=== PATIENT | female | born 1970 | race Caucasian/White ===

== ENCOUNTER → 2019-01-18 07:51 | Outpatient (CLI) | payer BC, OTHER, SELFPAY ==
[2019-01-18 08:53] LABS: Alanine Aminotransferase 22 IU/L (9-52); Albumin 4.2 g/dL (3.5-5.0); Albumin Globulin Ratio 1.4 (1.0-2.8); Alkaline Phosphatase 50 U/L (38-126); Aspartate Aminotransferase 21 IU/L (14-36); BUN Creatinine Ratio 18.3 (6-22); Bilirubin Total 0.3 mg/dL (0.2-1.3); Blood Urea Nitrogen 11 mg/dL (7-17); Calcium 9.2 mg/dL (8.4-10.2); Carbon Dioxide 27 mmol/L (22-32); Chloride 104 mmol/L (98-107); Cholesterol 237 mg/dL (140-199); Estimated Glomerular Filt Rate > 60.0 mL/min (>60); Glucose 99 mg/dL (70-100); HDL Cholesterol 55 mg/dL (40-60); HEMOLYSIS < 15 (0-50); LDL Cholesterol Calculated 164 mg/dL (<100); Potassium 4.5 mmol/L (3.4-5.1); Sodium 138 mmol/L (137-145); Total Protein 7.2 g/dL (6.3-8.2); Triglycerides 89 mg/dL (35-150)
[2019-01-18 09:23] LABS: TSH w/ Reflex to FT4 1.84 uIU/mL (0.47-4.68)
== END ==
PROVIDERS: PCP Internal Medicine; Visit Provider Internal Medicine
DX: G43.709 Chronic migraine without aura, not intractable, without status migrainosus (principal); I10 Essential (primary) hypertension
CPT/HCPCS: 36415; 80053; 80061; 84443

== ENCOUNTER → 2020-05-30 09:57 | Outpatient (CLI) | payer BC, OTHER, SELFPAY ==
[2020-05-30 10:48] LABS: Add Manual Diff / Slide Review NO; Basophils Absolute Auto 100 /uL (0-100); Basophils Percent Auto 1.2 % (0-2); Eosinophils Absolute Auto 100 /uL (0-450); Eosinophils Percent Auto 2.8 % (2-4); Hematocrit 39.5 % (36-46); Hemoglobin 13.6 g/dL (12.0-16.0); Lymphocytes Absolute Auto 1600 /uL (1100-4500); Lymphocytes Percent Auto 30.2 % (25-40); Mean Corpuscular HGB Conc 34.5 % (30-36); Mean Corpuscular Volume 86.9 fL (80-100); Monocytes Absolute Auto 300 /uL (0-900); Monocytes Percent Auto 4.9 % (3-14); Neutrophils Absolute Auto 3200 /uL (1500-7000); Neutrophils Percent Auto 60.9 % (50-75); Platelet Count 292 X10^3/uL (150-400); Red Blood Cell Count 4.55 X10^6/uL (4.0-5.2); Red Cell Distribution Width 13.1 % (11.6-14.8); White Blood Cell Count 5.3 X10^3/uL (4.5-11.0)
[2020-05-30 11:01] LABS: Alanine Aminotransferase 20 IU/L (<35); Albumin 4.5 g/dL (3.5-5.0); Albumin Globulin Ratio 1.5 (1.0-2.8); Alkaline Phosphatase 50 U/L (38-126); Aspartate Aminotransferase 23 IU/L (14-36); BUN Creatinine Ratio 17.9 (6-22); Bilirubin Total 0.4 mg/dL (0.2-1.3); Blood Urea Nitrogen 10 mg/dL (7-17); Calcium 9.2 mg/dL (8.4-10.2); Carbon Dioxide 30 mmol/L (22-32); Chloride 105 mmol/L (98-107); Estimated Glomerular Filt Rate > 60.0 mL/min (>60); Glucose 94 mg/dL (70-100); HEMOLYSIS < 15 (0-50); Sodium 139 mmol/L (137-145); Total Protein 7.5 g/dL (6.3-8.2)
[2020-05-30 11:27] LABS: TSH w/ Reflex to FT4 1.55 uIU/mL (0.47-4.68)
== END ==
PROVIDERS: PCP Internal Medicine; Referring Provider Internal Medicine; Visit Provider Internal Medicine
DX: G43.709 Chronic migraine without aura, not intractable, without status migrainosus (principal); I10 Essential (primary) hypertension
CPT/HCPCS: 36415; 80053; 84443; 85025

== ENCOUNTER 2021-04-30 21:42 | Emergency (ER) | payer BC, OTHER, SELFPAY ==
[2021-04-30 21:50] VITALS: BP 193/92; PULSE 105; RESP 18; TEMP 36.7; O2SAT 98; BMI 30.7
[2021-04-30 22:00] VITALS: PULSE 96; O2SAT 100
[2021-04-30 22:02] VITALS: BP 185/88; PULSE 95; O2SAT 100
--- NOTE | 2021-04-30 22:07 | DI.RAD.S_ITS ---
PROCEDURE: XR CHEST 1V INDICATIONS: chest pressure TECHNIQUE: One view of the chest was acquired. COMPARISON: [facility], , CHEST 2 VIEW, 08/06/2017, 15:16. FINDINGS: Surgical changes and devices: None. Lungs and pleura: Lungs are clear. No pleural effusions or pneumothorax. Mediastinum: Mediastinal contours appear normal. Heart size is normal. Bones and chest wall: No suspicious bony lesions. Overlying soft tissues appear unremarkable. IMPRESSION: No acute cardiopulmonary pathology. Dictated by: Berlin Lind M.D. on 04/30/2021 at 22:29 Approved by: Berlin Lind M.D. on 04/30/2021 at 22:29
[2021-04-30 22:18] LABS: Add Manual Diff / Slide Review NO; Basophils Absolute Auto 100 /uL (0-100); Basophils Percent Auto 0.7 % (0-2); Eosinophils Absolute Auto 200 /uL (0-450); Eosinophils Percent Auto 2.5 % (2-4); Hematocrit 40.3 % (36-46); Lymphocytes Absolute Auto 2600 /uL (1100-4500); Lymphocytes Percent Auto 36.1 % (25-40); Mean Corpuscular HGB Conc 34.7 % (30-36); Mean Corpuscular Hemoglobin 29.5 PG (26-34); Mean Corpuscular Volume 85.2 fL (80-100); Monocytes Absolute Auto 400 /uL (0-900); Monocytes Percent Auto 5.9 % (3-14); Neutrophils Absolute Auto 3900 /uL (1500-7000); Neutrophils Percent Auto 54.8 % (50-75); Platelet Count 332 X10^3/uL (150-400); Red Blood Cell Count 4.73 X10^6/uL (4.0-5.2); Red Cell Distribution Width 12.9 % (11.6-14.8); White Blood Cell Count 7.2 X10^3/uL (4.5-11.0)
[2021-04-30 22:19] LABS: Alanine Aminotransferase 15 IU/L (<35); Albumin 4.5 g/dL (3.5-5.0); Albumin Globulin Ratio 1.5 (1.0-2.8); Alkaline Phosphatase 56 U/L (38-126); Aspartate Aminotransferase 23 IU/L (14-36); BUN Creatinine Ratio 18.2 (6-22); Bilirubin Total 0.3 mg/dL (0.2-1.3); Blood Urea Nitrogen 12 mg/dL (7-17); Calcium 9.5 mg/dL (8.4-10.2); Carbon Dioxide 30 mmol/L (22-32); Chloride 104 mmol/L (98-107); Creatine Kinase 40 U/L (30-135); Estimated Glomerular Filt Rate > 60.0 mL/min (>60); Glucose 109 mg/dL (70-100); HEMOLYSIS < 15 (0-50); Lipase 89 U/L (23-300); Potassium 3.6 mmol/L (3.4-5.1); Sodium 140 mmol/L (137-145); Total Protein 7.5 g/dL (6.3-8.2)
[2021-04-30 22:30] VITALS: BP 168/79; PULSE 85; RESP 16; O2SAT 98
[2021-04-30 22:31] LABS: Troponin I < 0.012 ng/mL (0.01-0.034)
--- NOTE | 2021-04-30 22:39 | ED_ITS ---
HPI - General Adult General Chief complaint: Hypertension Stated complaint: not feeling well Time Seen by Provider: 04/30/21 22:07 Source: patient Mode of arrival: Ambulatory Limitations: no limitations History of Present Illness HPI narrative: This is a 51-year-old female who comes emergency department with complaint of not feeling well. Patient states she has a history of hypertension she also on verapamil which she states is her only blood pressure medication. She does not think she takes it for any other reason. Patient states that she has been checking her pressures intermittently for last several weeks and getting 150s, 170s frequently. She also notes that she sometimes feels like her heart is fast or racing. She will check it and it was 105 the other day at home. She has not had any syncope. She had time she feels little dizzy. She denies chest pain or pressure. She does not feel short of breath. She denies any nausea. She denies any diarrhea constipation. No urinary symptoms. No new swelling in her extremities. She does sometimes feel like her heart during palpitations is up in her throat. She denies any other medical issues. She does states she has been having some issues with insomnia and she also feels very anxious if she notes her blood pressure is high and will check it more frequently. She has a grandmother that from heart problems but denies any other significant cardiac, pulmonary or embolic history besides father with COPD who she states does use tobacco and alcohol frequently. Patient denies current tobacco, occasional EtOH, no illicit. Related Data Home Medications Medication Instructions Recorded Confirmed ascorbic acid (vitamin C) 500 mg #0 08/04/17 04/27/21 tablet coenzyme Q10 100 mg capsule (Co #0 08/04/17 04/27/21 Q-10) magnesium 200 mg tablet #0 08/04/17 04/27/21 vitamin B complex (B 1 tab PO DAILY 02/15/19 04/27/21 Complex-Vitamin B12) cholecalciferol (vitamin D3) 50 50 mcg PO .2-3x week cap 05/30/20 04/27/21 mcg (2,000 unit) capsule Previous Rx's Medication Instructions Recorded valacyclovir 1 gram tablet 1,000 mg PO TID #42 tab 06/08/11 cyclobenzaprine 10 mg tablet 10 mg PO TID PRN #60 tab 05/30/20 verapamil 120 mg tablet,extended 120 mg PO DAILY #30 tab 03/19/21 release amoxicillin 500 mg capsule 500 mg PO Q8H 7 Days #21 cap 04/27/21 verapamil 180 mg 24 hr 180 mg PO DAILY #20 cap 04/30/21 capsule,extended release Allergies Allergy/AdvReac Type Severity Reaction Status Date / Time Sulfa (Sulfonamide Allergy Intermediate Verified 04/27/21 08:17 Antibiotics) [SULFA (SULFONAMIDE ANTIBIOTICS)] sulfamethoxazole Allergy Unknown Verified 04/27/21 08:17 [From ] trimethoprim [From ] Allergy Unknown Verified 04/27/21 08:17 lisinopril AdvReac Intermediate felt weird Verified 04/27/21 08:17 propranolol AdvReac Intermediate felt wierd Verified 04/27/21 08:17 Review of Systems Review of Systems ROS Unobtainable: All systems reviewed & are unremarkable except as noted in HPI and below Patient History Medical History 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) Chronic migraine Hypertension Internal carotid artery dissection (09/13/10) Varicose veins of left lower extremity Surgical History Status post bilateral salpingectomy (01/21/14) Status post breast biopsy Status post delivery Status post cone biopsy of cervix (10/08/08) Status post cystoscopy (01/21/14) Status post total hysterectomy (01/21/14) Family History Father Diabetes mellitus Hypertension Grandfather Diabetes mellitus Grandmother [place] (myocardial infarction) Social History Smoking Status: Former smoker alcohol intake: never substance use type: does not use Smoking Status: Former smoker alcohol intake frequency: 0-2 drinks per day Substance Use Type: does not use Exam Narrative Exam Narrative: GENERAL: Alert and oriented x three, female in mild distress. HEENT: Head normocephalic, atraumatic, EOMI, pupils reactive, face symmetric, moist mucous membranes NECK: Supple, full range of motion CARDIOVASCULAR: Regular rate and rhythm without murmurs, rubs or gallops. No JVD. No swelling bilateral upper or lower extremities. RESPIRATORY: Breath sounds equal bilaterally, no wheezes rales or rhonchi. No tachypnea or accessory muscle use. ABDOMEN: Soft, nontender. Normoactive bowel sounds all 4 quadrants. No guarding or rebound, rigidity, no mass : No CVA tenderness EXTREMITIES: Normal range of motion, no edema. Neurovascularly intact NEUROLOGICAL: Cranial nerves II through XII grossly intact. Moving all extremities SKIN: Warm, dry, no petechiae, no rashes or lesions. PSYCH: Anxiety Initial Vital Signs Initial Vital Signs: Vital Signs Temperature 98.1 F 04/30/21 21:50 Pulse Rate 105 H 04/30/21 21:50 Respiratory Rate 18 04/30/21 21:50 Blood Pressure 193/92 H 04/30/21 21:50 Pulse Oximetry 98 04/30/21 21:50 Scores HEART Score Heart Score history: Slightly Suspicious Heart Score EKG: Normal Heart Score Age: 45-64 years old Heart Score risk factors: 1-2 risk factors Heart Score troponin: < or = to normal limit Heart Score Total: 2 PERC Score Age greater than or equal to 50 years: Yes Heart rate greater than or equal to 100 bpm: Yes Room Air O2 Sat less than 95%: No Unilateral leg swelling: No Recent trauma or surgery: No Hemoptysis: No Prior PE or DVT: No Hormone Use: No Total PERC Score: 2 Course Orders Ordered: ED Orders 04/30/21 21:51 EKG-12 Lead Stat 04/30/21 21:55 Complete Blood Count AUTO DIFF Stat Comprehensive Metabolic Panel Stat D Dimer Stat Lipase Stat Troponin & CK Cardiac Panel Stat 04/30/21 21:58 COVID19 -Nasal swab/Pre-Proc Stat 04/30/21 22:07 XR chest 1V Stat EKG-12 Lead Stat Vital Signs Vital signs: Vital Signs - 8 hr 04/30/21 21:50 04/30/21 22:00 04/30/21 22:02 Temperature 98.1 F Pulse Rate 105 H 96 H 95 H Respiratory Rate 18 Blood Pressure 193/92 H 185/88 H Pulse Oximetry 98 100 100 04/30/21 22:30 04/30/21 23:00 04/30/21 23:08 Temperature Pulse Rate 85 82 90 Respiratory Rate 16 Blood Pressure 168/79 H 182/79 H 156/82 H Pulse Oximetry 98 98 98 Medical Decision Making Lab Data Result diagrams: 04/30/21 21:55 04/30/21 21:55 Labs: Lab Results 04/30/21 04/30/21 04/30/21 Range/Units 21:55 21:55 21:55 WBC 7.2 (4.5-11.0) X10^3/uL RBC 4.73 (4.0-5.2) X10^6/uL Hgb 14.0 (12.0-16.0) g/dL Hct 40.3 (36-46) % MCV 85.2 (80-100) fL MCH 29.5 (26-34) PG MCHC 34.7 (30-36) % RDW 12.9 (11.6-14.8) % Plt Count 332 (150-400) X10^3/uL Neut % (Auto) 54.8 (50-75) % Lymph % (Auto) 36.1 (25-40) % Ritchie % (Auto) 5.9 (3-14) % Eos % (Auto) 2.5 (2-4) % Baso % (Auto) 0.7 (0-2) % Neut # (Auto) 3900 (0437-4788) /uL Lymph # (Auto) 2600 (5780-3880) /uL Ritchie # (Auto) 400 (0-900) /uL Eos # (Auto) 200 (0-450) /uL Baso # (Auto) 100 (0-100) /uL D-Dimer < 200 (<230) ng/mL Sodium 140 (137-145) mmol/L Potassium 3.6 (3.4-5.1) mmol/L Chloride 104 (98-107) mmol/L Carbon Dioxide 30 (22-32) mmol/L BUN 12 (7-17) mg/dL Creatinine 0.66 (0.52-1.04) mg/dL Estimated GFR > 60.0 (>60) mL/min BUN/Creatinine Ratio 18.2 (6-22) Glucose 109 H (70-100) mg/dL Calcium 9.5 (8.4-10.2) mg/dL Total Bilirubin 0.3 (0.2-1.3) mg/dL AST 23 (14-36) IU/L ALT 15 (<35) IU/L Alkaline Phosphatase 56 (38-126) U/L Total Creatine Kinase 40 (30-135) U/L CK-MB (CK-2) TNP CK-MB (CK-2) Rel Index TNP Troponin I < 0.012 (0.01-0.034) ng/mL Total Protein 7.5 (6.3-8.2) g/dL Albumin 4.5 (3.5-5.0) g/dL Globulin 3.0 (1.7-4.1) g/dL Albumin/Globulin Ratio 1.5 (1.0-2.8) Lipase 89 (23-300) U/L SARS-CoV-2 (PCR) (Negative) 04/30/21 Range/Units 21:58 WBC (4.5-11.0) X10^3/uL RBC (4.0-5.2) X10^6/uL Hgb (12.0-16.0) g/dL Hct (36-46) % MCV (80-100) fL MCH (26-34) PG MCHC (30-36) % RDW (11.6-14.8) % Plt Count (150-400) X10^3/uL Neut % (Auto) (50-75) % Lymph % (Auto) (25-40) % Ritchie % (Auto) (3-14) % Eos % (Auto) (2-4) % Baso % (Auto) (0-2) % Neut # (Auto) (7005-5829) /uL Lymph # (Auto) (4726-3459) /uL Ritchie # (Auto) (0-900) /uL Eos # (Auto) (0-450) /uL Baso # (Auto) (0-100) /uL D-Dimer (<230) ng/mL Sodium (137-145) mmol/L Potassium (3.4-5.1) mmol/L Chloride (98-107) mmol/L Carbon Dioxide (22-32) mmol/L BUN (7-17) mg/dL Creatinine (0.52-1.04) mg/dL Estimated GFR (>60) mL/min BUN/Creatinine Ratio (6-22) Glucose (70-100) mg/dL Calcium (8.4-10.2) mg/dL Total Bilirubin (0.2-1.3) mg/dL AST (14-36) IU/L ALT (<35) IU/L Alkaline Phosphatase (38-126) U/L Total Creatine Kinase (30-135) U/L CK-MB (CK-2) CK-MB (CK-2) Rel Index Troponin I (0.01-0.034) ng/mL Total Protein (6.3-8.2) g/dL Albumin (3.5-5.0) g/dL Globulin (1.7-4.1) g/dL Albumin/Globulin Ratio (1.0-2.8) Lipase (23-300) U/L SARS-CoV-2 (PCR) Negative (Negative) Imaging Data Chest x-ray: Radiologist's Impression: Launch?Image [address] [address] XRay Report Signed Patient: Virgie Basilio MR#: [id number] : 1970 Acct:[id number] Age/Sex: 51 / F Date of Service: 04/30/21 Loc: ED Accession Number: [id number] ?? Procedure: XR chest 1V Ordering Provider: Becka Kirk D.O. PROCEDURE:? XR CHEST 1V ? INDICATIONS:? chest pressure ? TECHNIQUE:? One view of the chest was acquired.? ? COMPARISON:? [facility], , CHEST 2 VIEW, 08/06/2017, 15:16. ? FINDINGS:? ? Surgical changes and devices:? None.? ? Lungs and pleura:? Lungs are clear.? No pleural effusions or pneumothorax.? ? Mediastinum:? Mediastinal contours appear normal.? Heart size is normal.? ? Bones and chest wall:? No suspicious bony lesions.? Overlying soft tissues ap pear unremarkable.? ? IMPRESSION:? No acute cardiopulmonary pathology. ? ? Dictated by: Berlin Lind M.D. on 04/30/2021 at 22:29 ? ? Approved by: Berlin Lind M.D. on 04/30/2021 at 22:29?? ECG Data Attestation: I personally reviewed and interpreted this ECG as follows: Prior ECG tracings: available for review Interpretation: Sinus rhythm possible left atrial enlargement. Nonspecific ST. Rate of 95 [place] 146 QRS 86 and QTC of 434. No acute ST elevation depression noted. Patient has prior from 07/28/2014 which appears similar. MDM Narrative Medical decision making narrative: This is a 51-year-old female comes emergency department with complaint of hypertension patient is hypertensive in the department. She has been checking at home regularly and also has been somewhat hypertensive. She is on verapamil which she states is solely for hypertension. She is not familiar with him being for any other medical issues. Patient does have reported history of chronic migraines but no other medical history a ppreciated in her chart. Of patient I discussed possibly increasing her verapamil slightly she has follow-up scheduled on the 11 of May. She also notes frequent palpitations but no other alarming features on her HPI. She was mildly tachycardic at 105 but is been 80s to 90s regularly and does not have other high risk factors with a negative D-dimer. My suspicion for PE is low. Her chest x-ray is negative with no signs of infection or other changes. Discussed following with her primary care they can perform Holter monitor if needed. Discharge Plan Departure Patient Disposition: Home Clinical Impression: Hypertension, Palpitations Instructions: DI for High Blood Pressure Activity Restrictions/Additional Instructions: Follow-up with your physician for recheck. If you are having persistently elevated blood pressures in the 150s or above it would be appropriate to slightly increase your blood pressure medication. Included as a prescription. Stop your current verapamil 120mg and start they new verapamil 180mg daily Prescription sent to [facility] in [place]. I would recommend keeping a log of your blood pressures. If they continue to be elevated you can call to speak to the on-call physician and Dr. Johnson office and then can give guidance about medication adjustment. If you continue to have palpitations or sense of faster fluttering heartbeat can discussed with Dr. Johnson at your appointment about possibly having a Holter monitor. Please return for new or worsening chest pain shortness of breath, passing out, new swelling in your extremities, persistent vomiting or other new or concerning symptoms. Prescriptions: New verapamil 180 mg capsule,ext rel. pellets 24 hr 180 mg PO DAILY Qty: 20 RF: 0 No Action amoxicillin 500 mg capsule 500 mg PO Q8H 7 Days Qty: 21 RF: 0 ascorbic acid (vitamin C) 500 mg Tablet Qty: 0 RF: 0 magnesium 200 mg Tablet Qty: 0 RF: 0 coenzyme Q10 [Co Q-10] 100 mg Capsule Qty: 0 RF: 0 valacyclovir 1 gram tablet 1,000 mg PO TID Qty: 42 RF: 1 verapamil 120 mg tablet extended release 120 mg PO DAILY Qty: 30 RF: 3 vitamin B complex [B Complex-Vitamin B12] tablet 1 tab PO DAILY RF: 0 cholecalciferol (vitamin D3) 50 mcg (2,000 unit) capsule 50 mcg PO .2-3x week RF: 0 cyclobenzaprine 10 mg tablet 10 mg PO TID PRN (Reason: muscle spasm) Qty: 60 RF: 1 Referrals: Zach Johnson MD [Primary Care Provider] -
[2021-04-30 22:54] LABS: D Dimer < 200 ng/mL (<230)
[2021-04-30 22:59] LABS: COVID19 -Nasal RAPID Negative (Negative)
[2021-04-30 23:00] VITALS: BP 182/79; PULSE 82; O2SAT 98
[2021-04-30 23:08] VITALS: BP 156/82; PULSE 90; O2SAT 98
== END 2021-04-30 23:37 | disposition home or self-care (01) ==
PROVIDERS: Emergency Provider Emergency Medicine; PCP Internal Medicine
DX: I10 Essential (primary) hypertension (principal); R00.2 Palpitations; R07.9 Chest pain, unspecified; R42 Dizziness and giddiness; Z20.822 Contact with and (suspected) exposure to COVID-19
CPT/HCPCS: 36415; 71045; 80053; 82550; 83690; 84484; 85025; 85379; 87635; 93005; 93010; 99283; 99284; C9803

== ENCOUNTER → 2021-06-03 09:36 | Outpatient (CLI) | payer BC, OTHER, SELFPAY ==
--- NOTE | 2021-07-11 12:10 | P.HOLT.S_ITS ---
Insecticide Expert Report Referral & Results Date Patient Seen: 06/03/21 Requesting provider: Zach Johnson Indication: Palpitations Duration of monitoring (days): 8 Diary information: There were 4 patient triggered events associated with sinus rhythm only Data: Minimum heart rate identified was 59 beats per minute at 04:32 on 06/04/2021 Maximum heart rate was 133 beats per minute at 08:45 on 06/05/2021 Less than 1% of identified beats were ventricular or supraventricular ectopic in origin, which would classify them as rare. Impression: This study demonstrates rare simple PVCs and PACs. Patient events not associated with any dysrhythmia Essentially normal 7+ day quality assurance monitor body that does not demonstrate an etiology for patient's sense of palpitations Clinical correlation suggested
== END ==
PROVIDERS: PCP Internal Medicine; Referring Provider Internal Medicine; Visit Provider Internal Medicine
DX: R00.2 Palpitations (principal)
CPT/HCPCS: 93242; 93244

== ENCOUNTER → 2021-09-30 12:41 | Outpatient (CLI) | payer BC, OTHER, SELFPAY ==
--- NOTE | 2021-09-30 12:43 | DI.MG.S_ITS ---
BILATERAL DIGITAL DIAGNOSTIC MAMMOGRAM 3D/2D: 09/30/2021 CLINICAL: Left breast pain. Comparison is made to exam dated: 12/16/2015 mammogram - [facility]. There are scattered fibroglandular elements in both breasts. No significant masses, calcifications, or other findings are seen in either breast. There has been no significant interval change. IMPRESSION: NEGATIVE There is no mammographic evidence of malignancy. A 1 year screening mammogram is recommended. This exam was interpreted at Station ID: [id number]. NOTE: For mammograms, a report in lay terms will be sent to the patient. Approximately 15% of breast malignancies will not be visualized mammographically. In the management of a palpable breast mass, a negative mammogram must not discourage biopsy of a clinically suspicious lesion. Electronically Signed By: Yoseph Nettles M.D., jr/austen:09/30/2021 14:00:25 letter sent: Normal Exam ACR BI-RADS Category 1: Negative [id number]
== END ==
PROVIDERS: PCP Internal Medicine; Referring Provider Internal Medicine; Visit Provider Internal Medicine
DX: N64.4 Mastodynia (principal)
CPT/HCPCS: 77066; G0279

== ENCOUNTER → 2022-04-05 09:32 | Outpatient (CLI) | payer BC, OTHER, SELFPAY ==
[2022-04-05 14:17] LABS: Alanine Aminotransferase 17 IU/L (<35); Albumin Globulin Ratio 1.5 (1.0-2.8); Alkaline Phosphatase 61 U/L (38-126); Aspartate Aminotransferase 18 IU/L (14-36); BUN Creatinine Ratio 18.6 (6-22); Bilirubin Total 0.3 mg/dL (0.2-1.3); Blood Urea Nitrogen 11 mg/dL (7-17); Calcium 8.5 mg/dL (8.4-10.2); Carbon Dioxide 27 mmol/L (22-32); Chloride 104 mmol/L (98-107); Cholesterol 272 mg/dL (140-199); Estimated Glomerular Filt Rate > 60 mL/min (>60); Globulin 2.6 g/dL (1.7-4.1); Glucose 78 mg/dL (70-100); HDL Cholesterol 54 mg/dL (40-60); HEMOLYSIS < 15 (0-50); LDL Cholesterol Calculated 198 mg/dL (<100); Potassium 4.2 mmol/L (3.4-5.1); Sodium 138 mmol/L (137-145); Total Protein 6.6 g/dL (6.3-8.2); Triglycerides 99 mg/dL (35-150)
[2022-04-05 14:27] LABS: Free T4, Direct Thyroxine 0.99 ng/dL (0.78-2.19)
== END ==
PROVIDERS: PCP Internal Medicine; Referring Provider Internal Medicine; Visit Provider Internal Medicine
DX: E78.5 Hyperlipidemia, unspecified (principal); G43.709 Chronic migraine without aura, not intractable, without status migrainosus; I10 Essential (primary) hypertension
CPT/HCPCS: 36415; 80053; 80061; 84439; 84443

== ENCOUNTER 2022-06-15 19:02 | Emergency (ER) | payer BC, OTHER, SELFPAY ==
[2022-06-15 19:20] VITALS: BP 169/96; PULSE 94; RESP 20; TEMP 36.8; O2SAT 99; BMI 30.5
--- NOTE | 2022-06-15 19:45 | DI.CT.S_ITS ---
PROCEDURE: CT CERVICAL SPINE WO CON INDICATIONS: fall with injury TECHNIQUE: Noncontrast 3 mm thick sections acquired from the skull base to the T4 level. Sagittal and coronal reformats were then constructed. For radiation dose reduction, the following was used: automated exposure control, adjustment of mA and/or kV according to patient size. COMPARISON: None. FINDINGS: Image quality: Excellent. Bones: No fractures or subluxation. There is straightening of the cervical lordosis. There is mild degenerative disc disease at C5-C6. Visualized superior ribs are intact. Soft tissues: Prevertebral soft tissues are normal in thickness. No paravertebral hematomas. No apical pneumothoraces. IMPRESSION: 1. No fracture or subluxation. Dictated by: Sagar Fierro M.D. on 06/15/2022 at 20:19 Approved by: Sagar Fierro M.D. on 06/15/2022 at 20:21
--- NOTE | 2022-06-15 19:45 | DI.CT.S_ITS ---
PROCEDURE: CT HEAD/BRAIN WO CON INDICATIONS: fall with injury TECHNIQUE: Noncontrast 4.5 mm thick angled axial sections acquired from the foramen magnum to the vertex, with coronal and sagittal reformats. For radiation dose reduction, the following was used: automated exposure control, adjustment of mA and/or kV according to patient size. COMPARISON: [facility], CT, HEAD WITHOUT CONTRAST, 08/04/2017, 15:35. FINDINGS: Image quality: Excellent. CSF spaces: Basal cisterns are patent. No extra-axial fluid collections. Ventricles are normal in size and shape. Brain: No intracranial hemorrhage, mass, or mass effect. Carrillo-white matter interface appears preserved. Skull and face: Calvarium and visualized facial bones are intact, without suspicious lesions. Sinuses: Visualized sinuses demonstrate mucosal thickening with small air-fluid levels within the left maxillary and bilateral sphenoid sinuses suggestive of acute sinusitis. Mastoid air cells are clear. IMPRESSION: 1. Or No acute intracranial abnormality. Dictated by: Sagar Fierro M.D. on 06/15/2022 at 20:17 Approved by: Sagar Fierro M.D. on 06/15/2022 at 20:19
--- NOTE | 2022-06-15 19:48 | DI.RAD.S_ITS ---
PROCEDURE: XR SHOULDER LT MIN 2V INDICATIONS: fall with injury TECHNIQUE: 3 views of the shoulder were acquired. COMPARISON: None. FINDINGS: Bones: No fractures or dislocations. No suspicious bony lesions. Visualized ribs appear intact. Soft tissues: No suspicious soft tissue calcifications. IMPRESSION: 1. No fracture or dislocation. Dictated by: Sagar Fierro M.D. on 06/15/2022 at 20:21 Approved by: Sagar Fierro M.D. on 06/15/2022 at 20:21
--- NOTE | 2022-06-15 19:48 | DI.RAD.S_ITS ---
PROCEDURE: XR HIP W PEL IF DONE RT 2V INDICATIONS: fall with injury TECHNIQUE: AP pelvis with lateral view of the right hip. COMPARISON: None. FINDINGS: Bones: No fractures or dislocations. Pelvic ring appears intact. No suspicious bony lesions. Soft tissues: The visualized bowel gas pattern is normal. No suspicious soft tissue calcifications. IMPRESSION: 1. No fracture or dislocation. Dictated by: Sagar Fierro M.D. on 06/15/2022 at 20:22 Approved by: Sagar Fierro M.D. on 06/15/2022 at 20:22
--- NOTE | 2022-06-15 21:10 | ED_ITS ---
HPI - General Adult General Chief complaint: Trauma Stated complaint: fell, hit head hard Time Seen by Provider: 06/15/22 20:06 Source: patient Mode of arrival: Ambulatory History of Present Illness HPI narrative: 52-year-old female who is here for evaluation of injuries she sustained when she states she slipped on the ice and fell backwards landing on her back. She states she did hit her head. There was no loss of consciousness. This happened several hours ago. She has taken Tylenol. She is continued to have a headache. She also has hip pain and shoulder pain. She has been ambulatory since the event. Is also having some dizziness. She is not on blood thinners. Related Data Home Medications Medication Instructions Recorded Confirmed ascorbic acid (vitamin C) 500 mg ##0 08/04/17 04/26/22 tablet coenzyme Q10 100 mg capsule (Co ##0 08/04/17 04/26/22 Q-10) magnesium 200 mg tablet ##0 08/04/17 04/26/22 vitamin B complex (B 1 tab PO DAILY 02/15/19 04/26/22 Complex-Vitamin B12 tablet) cholecalciferol (vitamin D3) 50 50 mcg PO .2-3x week 05/30/20 04/26/22 mcg (2,000 unit) capsule Previous Rx's Medication Instructions Recorded valacyclovir 1 gram tablet 1,000 mg PO TID #42 tabs 06/08/11 cyclobenzaprine 10 mg tablet 10 mg PO TID PRN muscle spasm #60 05/30/20 tabs tramadol 50 mg tablet 50 mg PO TID PRN pain #30 tabs 10/20/21 carvedilol 3.125 mg tablet 3.125 mg PO BID #60 tabs 02/26/22 verapamil 120 mg tablet,extended 120 mg PO BID #180 tabs 03/02/22 release Allergies Allergy/AdvReac Type Severity Reaction Status Date / Time Sulfa (Sulfonamide Allergy Intermediate Verified 04/26/22 09:28 Antibiotics) [SULFA (SULFONAMIDE ANTIBIOTICS)] sulfamethoxazole Allergy Unknown Verified 04/26/22 09:28 [From ] trimethoprim [From ] Allergy Unknown Verified 04/26/22 09:28 lisinopril AdvReac Intermediate felt weird Verified 04/26/22 09:28 propranolol AdvReac Intermediate felt wierd Verified 04/26/22 09:28 Review of Systems Constitutional Constitutional: Reports system reviewed and no additional complaints, except as documented ENT Ears, Nose, Mouth, and Throat: Reports system reviewed and no additional complaints, except as documented Musculoskeletal Musculoskeletal: Reports system reviewed and no additional complaints, except as documented Integumentary/Breasts Skin/Breast: Reports system reviewed and no additional complaints, except as documented Neurologic Neurologic: Reports system reviewed and no additional complaints, except as documented Hematologic/Lymphatic On Anticoagulants: No Patient History Medical History 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) Chronic migraine Hypertension Internal carotid artery dissection (09/13/10) Mixed hyperlipidemia Varicose veins of left lower extremity Surgical History Status post bilateral salpingectomy (01/21/14) Status post breast biopsy Status post delivery Status post cone biopsy of cervix (10/08/08) Status post cystoscopy (01/21/14) Status post total hysterectomy (01/21/14) Family History Father Diabetes mellitus Hypertension Grandfather Diabetes mellitus Grandmother [place] (myocardial infarction) Social History Smoking Status: Former smoker alcohol intake: never substance use type: does not use Smoking Status: Former smoker alcohol intake frequency: 0-2 drinks per day Substance Use Type: does not use Exam Initial Vital Signs Initial Vital Signs: Vital Signs Temperature 98.3 F 06/15/22 19:20 Pulse Rate 94 H 06/15/22 19:20 Respiratory Rate 20 06/15/22 19:20 Blood Pressure 169/96 H 06/15/22 19:20 Pulse Oximetry 99 06/15/22 19:20 Oxygen Delivery Method 06/15/22 19:20 Const General: cooperative and No ill appearing HENMT Head: normal to inspection and normocephalic Face and sinus: normal facial exam Resp Effort & Inspection: normal respiratory effort Cardio Rate: regular rate Back/Spine/Pelvis Back: normal to inspection Skin General: no rashes or lesions noted Neuro General: patient alert, patient awake and moves all extremities Extrem General: capillary refill normal Psych Appearance: grossly normal and well kempt Course Orders Ordered: ED Orders 06/15/22 19:45 CT cervical spine wo con Stat CT head/brain wo con Stat 06/15/22 19:48 XR hip w pel if done RT 2V Stat XR shoulder LT min 2V Stat Discontinued Medications Acetaminophen (Acetaminophen 325 Mg Tablet) 650 mg PO NOW ONE Stop: 06/15/22 21:12 Last Admin: 06/15/22 21:35 Dose: 650 mg Documented By: ADA Vital Signs Vital signs: Vital Signs - 8 hr 06/15/22 19:20 06/15/22 21:37 Temperature 98.3 F 97.7 F Pulse Rate 94 H 66 Respiratory Rate 20 16 Blood Pressure 169/96 H 122/74 Pulse Oximetry 99 98 Oxygen Delivery Method Room Air Room Air Medical Decision Making Imaging Data CT - cervical spine: Radiologist's Impression: [address] [address] [address] Scan Report Signed Patient: Virgie Basilio MR#: [id number] : 1970 Acct:[id number] Age/Sex: 52 / F Date of Service: 06/15/22 Loc: ED Accession Number: [id number] ?? Procedure: CT cervical spine wo con Ordering Provider: Manuel Torre D.O. PROCEDURE:? CT CERVICAL SPINE WO CON ? INDICATIONS:? fall with injury ? TECHNIQUE:? Noncontrast 3 mm thick sections acquired from the skull base to the T4 level.? Sagittal and coronal reformats were then constructed.? For radiation dose reduction, the following was used:? automated exposure control, adjustment of mA and/or kV according to patient size.? ? COMPARISON:? None. ? FINDINGS:? Image quality:? Excellent.? ? Bones:? No fractures or subluxation.? There is straightening of the cervical lordosis.? There is mild degenerative disc disease at C5-C6.? Visualized superior ribs are intact.? ? Soft tissues:? Prevertebral soft tissues are normal in thickness.? No paravertebral hematomas.? No apical pneumothoraces.? ? ? IMPRESSION:? ? 1. No fracture or subluxation. ? ? ? Dictated by: Sagar Fierro M.D. on 06/15/2022 at 20:19 ? ? Approved by: Sagar Fierro M.D. on 06/15/2022 at 20:21? CT scan - head: Radiologist's Impression: [place] [address] CT Scan Report Signed Patient: Virgie Basilio MR#: [id number] : 1970 Acct:[id number] Age/Sex: 52 / F Date of Service: 06/15/22 Loc: ED Accession Number: [id number] ?? Procedure: CT head/brain wo con Ordering Provider: Manuel Torre D.O. PROCEDURE:? CT HEAD/BRAIN WO CON ? INDICATIONS:? fall with injury ? TECHNIQUE:? Noncontrast 4.5 mm thick angled axial sections acquired from the foramen magnum to the vertex, with coronal and sagittal reformats.? For radiation dose reduction, the following was used:? automated exposure control, adjustment of mA and/or kV according to patient size.? ? COMPARISON:? [facility], CT, HEAD WITHOUT CONTRAST, 08/04/2017, 15:35. ? FINDINGS:? Image quality:? Excellent.? ? CSF spaces:? Basal cisterns are patent.? No extra-axial fluid collections.? Ventricles are normal in size and shape.? ? Brain:? No intracranial hemorrhage, mass, or mass effect.? Carrillo-white matter interface appears preserved.? ? Skull and face:? Calvarium and visualized facial bones are intact, without suspicious lesions.? ? Sinuses:? Visualized sinuses demonstrate mucosal thickening with small air-fluid levels within the left maxillary and bilateral sphenoid sinuses suggestive of acute sinusitis.? Mastoid air cells are clear. ? IMPRESSION:? ? 1. Or No acute intracranial abnormality.? ? Dictated by: Sagar Fierro M.D. on 06/15/2022 at 20:17 ? ? Approved by: Sagar Fierro M.D. on 06/15/2022 at 20:19 Extremity x-ray #1: Radiologist's Impression: [address] [address] XRay Report Signed Patient: Virgie Basilio MR#: [id number] : 1970 Acct:[id number] Age/Sex: 52 / F Date of Service: 06/15/22 Loc: ED Accession Number: [id number] ?? Procedure: XR hip w pel if done RT 2V Ordering Provider: Manuel Torre D.O. PROCEDURE:? XR HIP W PEL IF DONE RT 2V ? INDICATIONS:? fall with injury ? TECHNIQUE:? AP pelvis with lateral view of the right hip. ? COMPARISON:? None. ? FINDINGS:? ? Bones:? No fractures or dislocations.? Pelvic ring appears intact.? No suspicious bony lesions.? ? Soft tissues:? The visualized bowel gas pattern is normal.? No suspicious soft tissue calcifications.? ? ? IMPRESSION:? ? 1. No fracture or dislocation. ? ? ? Dictated by: Sagar Fierro M.D. on 06/15/2022 at 20:22 ? ? Approved by: Sagar Fierro M.D. on 06/15/2022 at 20:22 Extremity x-ray #2: Radiologist's Impression: [place] [address] XRay Report Signed Patient: Virgie Basilio MR#: [id number] : 1970 Acct:[id number] Age/Sex: 52 / F Date of Service: 06/15/22 Loc: ED Accession Number: [id number] ?? Procedure: XR shoulder LT min 2V Ordering Provider: Manuel Torre D.O. PROCEDURE:? XR SHOULDER LT MIN 2V ? INDICATIONS:? fall with injury ? TECHNIQUE:? 3 views of the shoulder were acquired.? ? COMPARISON:? None. ? FINDINGS:? ? Bones:? No fractures or dislocations.? No suspicious bony lesions.? Visualized ribs appear intact.? ? Soft tissues:? No suspicious soft tissue calcifications.? ? IMPRESSION:? ? 1. No fracture or dislocation. ? ? Dictated by: Sagar Fierro M.D. on 06/15/2022 at 20:21 ? ? Approved by: Sagar Fierro M.D. on 06/15/2022 at 20:21 MDM Narrative Medical decision making narrative: X-rays and CT scans here in the emergency department show no acute pathology. We did discuss head injuries and concussions. Discussed use of Tylenol and ibuprofen. This was clearly a mechanical fall when she slipped on ice. We do discuss return precautions and follow-up instructions. She expressed understanding and agreement. Discharge Plan Departure Patient Disposition: Home Clinical Impression: Concussion Instructions: Concussion Activity Restrictions/Additional Instructions: You can wear the cervical collar for your comfort. Recommend that you continue to take Tylenol and or ibuprofen for any headaches or body aches. Contact your primary doctor for follow-up. You can eat like normal and sleep like normal. Return to the emergency department for any new symptoms. Prescriptions: No Action ascorbic acid (vitamin C) 500 mg Tablet Qty: 0 magnesium 200 mg Tablet Qty: 0 coenzyme Q10 [Co Q-10] 100 mg Capsule Qty: 0 valacyclovir 1 gram tablet 1,000 mg PO TID Qty: 42 1RF tramadol 50 mg tablet 50 mg PO TID PRN (Reason: pain) Qty: 30 0RF verapamil 120 mg tablet extended release 120 mg PO BID Qty: 180 3RF vitamin B complex [B Complex-Vitamin B12] tablet 1 tab PO DAILY carvedilol 3.125 mg tablet 3.125 mg PO BID Qty: 60 3RF Rx Instructions: must administer with a meal/food cholecalciferol (vitamin D3) 50 mcg (2,000 unit) capsule 50 mcg PO .2-3x week cyclobenzaprine 10 mg tablet 10 mg PO TID PRN (Reason: muscle spasm) Qty: 60 1RF Referrals: Zach Johnson MD [Primary Care Provider] - Visit Report Forms: Patient Portal/API
[2022-06-15] MEDS: ACETAMINOPHEN 325 MG TABLET 650 MG PO (21:35)
[2022-06-15 21:37] VITALS: BP 122/74; PULSE 66; RESP 16; TEMP 36.5; O2SAT 98
== END 2022-06-15 21:38 | disposition home or self-care (01) ==
PROVIDERS: Emergency Provider Emergency Medicine; PCP Internal Medicine
DX: S06.0X0A Concussion without loss of consciousness, initial encounter (principal); M25.511 Pain in right shoulder; M25.552 Pain in left hip; W00.0XXA Fall on same level due to ice and snow, initial encounter
CPT/HCPCS: 70450; 72125; 73030; 73502; 99283

== ENCOUNTER → 2023-09-05 06:38 | Outpatient (CLI) | payer BC, OTHER, SELFPAY ==
--- NOTE | 2023-09-05 06:39 | DI.US.S_ITS ---
PROCEDURE: US PERIPH VENOUS LOW EXTREM LT INDICATIONS: EDEMA AND MID/MED LEFT THIGH PALPABLE -?DEEP VEIN THROMBOSIS TECHNIQUE: Real-time imaging, as well as color and pulse Doppler interrogation, were performed of the lower extremity deep veins from the inguinal ligament to the popliteal fossa, with documentation of the visualized calf veins. COMPARISON: None. FINDINGS: The common femoral, femoral, popliteal, and the visualized calf veins are normally compressible, and free of intraluminal thrombus. Color and pulse Doppler demonstrate normal phasic intraluminal flow. There is normal augmentation response to distal compression maneuver. No abnormality identified at the palpable site at the left mid medial thigh. IMPRESSION: No findings of lower extremity deep venous thrombosis. No abnormality identified at the palpable abnormality at the medial thigh. Dictated by: Jerome Carmen M.D. on 09/05/2023 at 8:29 Approved by: Jerome Carmen M.D. on 09/05/2023 at 8:31
== END ==
PROVIDERS: PCP Internal Medicine; Referring Provider Internal Medicine; Visit Provider Internal Medicine
DX: R60.0 Localized edema (principal); O87.4 Varicose veins of lower extremity in the puerperium
CPT/HCPCS: 93971

== ENCOUNTER → 2024-07-24 07:31 | Outpatient (CLI) | payer OTHER, SELFPAY ==
[2024-07-24 08:09] LABS: Alanine Aminotransferase 27 IU/L (<35); Albumin 4.6 g/dL (3.5-5.0); Albumin Globulin Ratio 1.9 (1.0-2.8); Alkaline Phosphatase 49 U/L (38-126); Aspartate Aminotransferase 24 IU/L (14-36); BUN Creatinine Ratio 20.3 (6-22); Bilirubin Total 0.4 mg/dL (0.2-1.3); Blood Urea Nitrogen 13 mg/dL (7-17); Calcium 9.4 mg/dL (8.4-10.2); Carbon Dioxide 29 mmol/L (22-32); Chloride 105 mmol/L (98-107); Cholesterol 321 mg/dL (140-199); Estimated Glomerular Filt Rate > 60 mL/min (>60); Globulin 2.4 g/dL (1.7-4.1); Glucose 100 mg/dL (70-100); HDL Cholesterol 61 mg/dL (40-60); HEMOLYSIS < 15 (0-50); LDL Cholesterol Calculated 223 mg/dL (<100); Potassium 4.9 mmol/L (3.4-5.1); Sodium 139 mmol/L (137-145); Triglycerides 184 mg/dL (35-150)
[2024-07-24 08:39] LABS: TSH w/ Reflex to FT4 1.94 uIU/mL (0.47-4.68)
== END ==
PROVIDERS: PCP Internal Medicine; Referring Provider Internal Medicine; Visit Provider Internal Medicine
DX: E78.2 Mixed hyperlipidemia (principal); I10 Essential (primary) hypertension
CPT/HCPCS: 36415; 80053; 80061; 84443

== ENCOUNTER → 2024-08-17 07:32 | Outpatient (CLI) | payer OTHER, SELFPAY ==
--- NOTE | 2024-08-17 07:33 | DI.US.S_ITS ---
PROCEDURE: US ABDOMEN LIMITED INDICATIONS: RUQ PAIN TECHNIQUE: Real-time scanning was performed of the abdominal and retroperitoneal organs, with image documentation. COMPARISON: None. FINDINGS: Liver: Liver is normal in size and increased in echogenicity. Gallbladder: No gallstones. No wall thickening. No pericholecystic edema. Negative sonographic Cedeño's sign. Biliary ducts: Intrahepatic bile ducts are non-dilated. Extrahepatic bile duct caliber measures 3.8 mm. Normal is 6-7 mm or less in diameter, or 10 mm or less post-cholecystectomy. Pancreas: Visualized portions of the pancreas are sonographically normal. Miscellaneous: No free abdominal fluid. IMPRESSION: Liver is increased in echogenicity, most consistent with hepatic steatosis. Gallbladder is normal in appearance. No gallstones or gallbladder wall thickening. Dictated by: Silverio Mcfadden M.D. on 08/17/2024 at 11:55 Approved by: Silverio Mcfadden M.D. on 08/17/2024 at 11:56
== END ==
LOC: US 07:32
PROVIDERS: PCP Internal Medicine; Referring Provider Internal Medicine; Visit Provider Internal Medicine
DX: R10.11 Right upper quadrant pain (principal)
CPT/HCPCS: 76705

== ENCOUNTER 2024-08-31 18:11 | Emergency (ER) | payer OTHER, SELFPAY ==
[2024-08-31] VITALS (18 sets, daily range): BP systolic 163–209; BP diastolic 77–113; PULSE 75–96; RESP 9–23; TEMP 36.8; O2SAT 96–100; BMI 32.5
--- NOTE | 2024-08-31 18:17 | DI.RAD.S_ITS ---
PROCEDURE: XR CHEST 1V INDICATIONS: chest pain TECHNIQUE: One view of the chest was acquired. COMPARISON: None. FINDINGS: Surgical changes and devices: None. Lungs and pleura: Lungs are clear. No pleural effusions or pneumothorax. Mediastinum: Mediastinal contours appear normal. Heart size is normal. Bones and chest wall: No suspicious bony lesions. Overlying soft tissues appear unremarkable. IMPRESSION: No acute cardiopulmonary abnormality is seen. Approved by: Holden Goldberg M.D. on 08/31/2024 at 19:10
--- NOTE | 2024-08-31 18:18 | EKG_ITS ---
[place] [id number] [address] [place] [address] Test Date: 2024-08-31 Pat Name: Virgie Basilio Department: Room: Gender: Female Casework Manager: BELKIS : 1970 Requested By: Order Number: [id number] Reading MD: Yuval Bobby Measurements Intervals [place] Rate: 92 P: 61 [place]: 158 QRS: 48 QRSD: 88 T: 70 QT: 364 QTc: 450 Interpretive Statements Normal sinus rhythm with sinus arrhythmia Possible Left atrial enlargement Nonspecific ST and T wave abnormality Electronically Signed On 09-03-2024 8:38:18 PDT by Yuval Bobby
[2024-08-31] MEDS: ASPIRIN 81 MG CHEW TAB 324 MG PO (18:36)
[2024-08-31 18:39] LABS: Add Manual Diff / Slide Review NO; Basophils Absolute Auto 100 /uL (0-100); Eosinophils Absolute Auto 100 /uL (0-450); Eosinophils Percent Auto 1.9 % (2-4); Hematocrit 41.5 % (36-46); Hemoglobin 14.2 g/dL (12.0-16.0); Lymphocytes Absolute Auto 2500 /uL (1100-4500); Lymphocytes Percent Auto 37.1 % (25-40); Mean Corpuscular HGB Conc 34.3 % (30-36); Mean Corpuscular Hemoglobin 29.1 PG (26-34); Mean Corpuscular Volume 84.8 fL (80-100); Monocytes Absolute Auto 400 /uL (0-900); Monocytes Percent Auto 5.8 % (3-14); Neutrophils Absolute Auto 3700 /uL (1500-7000); Neutrophils Percent Auto 54.2 % (50-75); Platelet Count 318 X10^3/uL (150-400); Red Blood Cell Count 4.89 X10^6/uL (4.0-5.2); Red Cell Distribution Width 13.3 % (11.6-14.8); White Blood Cell Count 6.8 X10^3/uL (4.5-11.0)
[2024-08-31 18:51] LABS: INR 0.9 (0.9-1.3); Prothrombin Time 10.5 SECONDS (9.4-12.5)
[2024-08-31 18:53] LABS: PTT Partial Thromboplastin Tim 39 SECONDS (25.1-36.5)
[2024-08-31 18:56] LABS: Alanine Aminotransferase 21 IU/L (<35); Albumin 4.8 g/dL (3.5-5.0); Albumin Globulin Ratio 1.7 (1.0-2.8); Alkaline Phosphatase 64 U/L (38-126); Aspartate Aminotransferase 30 IU/L (14-36); BUN Creatinine Ratio 20.6 (6-22); Bilirubin Total 0.4 mg/dL (0.2-1.3); Blood Urea Nitrogen 14 mg/dL (7-17); Calcium 9.3 mg/dL (8.4-10.2); Carbon Dioxide 24 mmol/L (22-32); Chloride 105 mmol/L (98-107); Creatine Kinase 60 U/L (30-135); Estimated Glomerular Filt Rate > 60 mL/min (>60); Globulin 2.9 g/dL (1.7-4.1); Glucose 105 mg/dL (70-100); HEMOLYSIS 30 (0-50); Lipase 104 U/L (23-300); Potassium 3.6 mmol/L (3.4-5.1); Sodium 138 mmol/L (137-145); Total Protein 7.7 g/dL (6.3-8.2)
--- NOTE | 2024-08-31 19:00 | ED.CHESTPAIN ---
HPI - Chest Pain General Chief Complaint: Chest Pain Stated Complaint: SOB, weakness, neck px HBP abd px Time Seen by Provider: 08/31/24 18:21 History of Present Illness HPI narrative: 54-year-old female with history of prior right-sided carotid dissection evaluated at [facility], no surgical intervention, unclear cause, had follow up studies for 18 months unrevealing. More recently having upper and right-sided abdominal pain, had outpatient ultrasound right upper quadrant abdomen study ordered by PCP Dr. Johnson, believes she might have HIDA scan and perhaps endoscopy studies and follow up. Tonight 3:00 p.m. had sensation of facial flushing, some shortness of breath, and onset of right neck pain, similar to when she had her carotid dissection symptoms in the past. No focal weakness to face arm or leg. No focal numbness to face arm or leg. No back pain, lower abdominal discomfort symptoms. Related Data Home Medications Medication Instructions Recorded Confirmed ascorbic acid (vitamin C) 500 mg ##0 08/04/17 07/26/24 tablet coenzyme Q10 100 mg capsule (Co ##0 08/04/17 07/26/24 Q-10) magnesium 200 mg tablet ##0 08/04/17 07/26/24 vitamin B complex (B 1 tab PO DAILY 02/15/19 07/26/24 Complex-Vitamin B12 tablet) cholecalciferol (vitamin D3) 50 50 mcg PO .2-3x week 05/30/20 07/26/24 mcg (2,000 unit) capsule Previous Rx's Medication Instructions Recorded valacyclovir 1 gram tablet 1,000 mg PO TID #90 tabs 06/08/11 cyclobenzaprine 10 mg tablet 10 mg PO TID PRN muscle spasm #60 05/30/20 tabs verapamil 120 mg tablet,extended 120 mg PO BID #180 tabs 03/02/22 release triamcinolone acetonide 0.1 % 1 applic topical TID #80 grams 01/13/24 topical cream albuterol sulfate 90 mcg/actuation 2 puff inhalation Q4-6H PRN 04/04/24 aerosol inhaler shortness of breath or wheezing #8.5 grams omeprazole 20 mg capsule,delayed 20 mg PO DAILY upper abdominal 08/31/24 release pain 30 days #30 caps Allergies Allergy/AdvReac Type Severity Reaction Status Date / Time Sulfa (Sulfonamide Allergy Intermediate Verified 07/26/24 08:54 Antibiotics) [SULFA (SULFONAMIDE ANTIBIOTICS)] sulfamethoxazole Allergy Unknown Verified 07/26/24 08:54 [From ] trimethoprim [From ] Allergy Unknown Verified 07/26/24 08:54 lisinopril AdvReac Intermediate felt nate Verified 07/26/24 08:54 propranolol AdvReac Intermediate felt mia Verified 07/26/24 08:54 Patient History Medical History (Updated 08/31/24 @ 21:54 by Sean Quinn MD) Varicose vein of leg, Mixed hyperlipidemia Chronic migraine Hypertension Varicose veins of left lower extremity Internal carotid artery dissection (09/13/10) 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) Surgical History Status post cystoscopy (01/21/14) Status post bilateral salpingectomy (01/21/14) Status post total hysterectomy (01/21/14) Status post breast biopsy Status post cone biopsy of cervix (10/08/08) Status post delivery Family History Father Diabetes mellitus Hypertension Grandfather Diabetes mellitus Grandmother [place] (myocardial infarction) Social History Smoking Status: Former smoker alcohol intake: never substance use type: does not use Smoking Status: Former smoker alcohol intake frequency: 0-2 drinks per day Exam Narrative Exam Narrative: GENERAL: Well-developed patient, in mild distress. HEAD: Atraumatic. Normocephalic. EYES: Pupils equal round and reactive. Extraocular motions intact. No scleral icterus. No injection or drainage. ENT: Nose without bleeding, purulent drainage. Throat without erythema, tonsillar hypertrophy or exudate. Airway patent. NECK: Trachea midline. Non tender CARDIOVASCULAR: Regular rate and rhythm without murmurs, gallops, or rubs. RESPIRATORY: Clear to auscultation. Breath sounds equal bilaterally. No wheezes, rales, or rhonchi. GASTROINTESTINAL: Abdomen soft, non-tender, nondistended. EXTREMITIES: No edema or joint tenderness. BACK: Nontender without deformity or crepitance. No flank tenderness. NEURO: AOx3. Motor functions grossly nonfocal SKIN: No rash or erythema of visible areas Initial Vital Signs Initial Vital Signs: Vital Signs Pulse Rate 91 H 08/31/24 18:20 Pulse Oximetry 99 08/31/24 18:20 Course Orders Ordered: ED Orders 08/31/24 20:56 Troponin I Stat Discontinued Medications Aspirin (Aspirin 81 Mg Chew Tab) 324 mg PO NOW ONE Stop: 08/31/24 18:18 Last Admin: 08/31/24 18:36 Dose: 324 mg Documented By: ISABELLE Famotidine (Famotidine 20 Mg/2 Ml Vial) 20 mg IV NOW IVELISSE Last Admin: 08/31/24 20:20 Dose: 20 mg Documented By: TAYLOR Sodium Chloride (Normal Saline 0.9%) 1,000 mls @ 1,000 mls/hr IV BOLUS ONE Stop: 08/31/24 20:14 Last Infusion: 08/31/24 21:05 Dose: Infused Documented By: Admin: 08/31/24 20:20 Dose: 1,000 mls/hr Documented By: TAYLOR Sodium Chloride (Normal Saline 0.9%) 1,000 mls @ 1,000 mls/hr IV BOLUS ONE Stop: 08/31/24 20:28 Last Infusion: 08/31/24 22:08 Dose: Infused Documented By: Admin: 08/31/24 21:05 Dose: 1,000 mls/hr Documented By: TAYLOR Vital Signs Vital signs: Vital Signs - 8 hr 08/31/24 22:00 08/31/24 22:00 Pulse Rate 80 Respiratory Rate 17 Blood Pressure 163/77 H Pulse Oximetry 100 MDM - Chest Pain Lab Data Attestation: I reviewed the patient's lab results. Lab results narrative: White blood cell count 6800, hemoglobin 14.2, platelets adequate. Glucose 105. BUN 14 with creatinine 0.68 normal renal function. Electrolytes unremarkable, serum CO2 24 normal. Liver functions and lipase normal. Troponin negative/unmeasurable. BNP normal. 08/31/24 18:24 08/31/24 18:24 Labs: Lab Results 08/31/24 08/31/24 Range/Units 18:24 20:56 WBC 6.8 (4.5-11.0) X10^3/uL RBC 4.89 (4.0-5.2) X10^6/uL Hgb 14.2 (12.0-16.0) g/dL Hct 41.5 (36-46) % MCV 84.8 (80-100) fL MCH 29.1 (26-34) PG MCHC 34.3 (30-36) % RDW 13.3 (11.6-14.8) % Plt Count 318 (150-400) X10^3/uL Neut % (Auto) 54.2 (50-75) % Lymph % (Auto) 37.1 (25-40) % [place] % (Auto) 5.8 (3-14) % Eos % (Auto) 1.9 L (2-4) % Baso % (Auto) 1.0 (0-2) % Neut # (Auto) 3700 (0143-3730) /uL Lymph # (Auto) 2500 (0804-3524) /uL [place] # (Auto) 400 (0-900) /uL Eos # (Auto) 100 (0-450) /uL Baso # (Auto) 100 (0-100) /uL PT 10.5 (9.4-12.5) SECONDS INR 0.9 (0.9-1.3) APTT 39 H (25.1-36.5) SECONDS Sodium 138 (137-145) mmol/L Potassium 3.6 (3.4-5.1) mmol/L Chloride 105 (98-107) mmol/L Carbon Dioxide 24 (22-32) mmol/L BUN 14 (7-17) mg/dL Creatinine 0.68 (0.52-1.04) mg/dL Estimated GFR > 60 (>60) mL/min BUN/Creatinine Ratio 20.6 (6-22) Glucose 105 H (70-100) mg/dL Calcium 9.3 (8.4-10.2) mg/dL Magnesium 2.0 (1.6-2.3) mg/dL Total Bilirubin 0.4 (0.2-1.3) mg/dL AST 30 (14-36) IU/L ALT 21 (<35) IU/L Alkaline Phosphatase 64 (38-126) U/L Total Creatine Kinase 60 (30-135) U/L Troponin I < 0.012 < 0.012 (0.01-0.034) ng/mL NT-Pro-B Natriuret Pep 47 (<125) pg/mL Total Protein 7.7 (6.3-8.2) g/dL Albumin 4.8 (3.5-5.0) g/dL Globulin 2.9 (1.7-4.1) g/dL Albumin/Globulin Ratio 1.7 (1.0-2.8) Lipase 104 (23-300) U/L Imaging Data Chest x-ray: Radiologist's Impression: [address] [address] XRay Report Signed Patient: Virgie Basilio MR#: [id number] : 1970 Acct:[id number] Age/Sex: 54 / F Date of Service: 08/31/24 Loc: ED Accession Number: [id number] Procedure: XR chest 1V Ordering Provider: Sean Quinn MD PROCEDURE: XR CHEST 1V INDICATIONS: chest pain TECHNIQUE: One view of the chest was acquired. COMPARISON: None. FINDINGS: Surgical changes and devices: None. Lungs and pleura: Lungs are clear. No pleural effusions or pneumothorax. Mediastinum: Mediastinal contours appear normal. Heart size is normal. Bones and chest wall: No suspicious bony lesions. Overlying soft tissues appear unremarkable. IMPRESSION: No acute cardiopulmonary abnormality is seen. Approved by: Holden oGldberg M.D. on 08/31/2024 at 19:10 CTA - brain/neck: Radiologist's Impression: Close Head/Neck CTA (Signed) Lind[place]lin - 08/31/24 Chest X-Ray (Signed) Holden Goldberg - 08/31/24 Launch?Image [address] [address] [address] Scan Report Signed Patient: Virgie Basilio MR#: [id number] : 1970 Acct:[id number] Age/Sex: 54 / F Date of Service: 08/31/24 Loc: ED Accession Number: [id number] Procedure: CT angio head and neck Ordering Provider: Sean Quinn MD PROCEDURE: CT ANGIO HEAD AND NECK INDICATIONS: hx carotid dissection, neck/chest pain TECHNIQUE: After the administration of intravenous contrast, 1 mm thick sections acquired from the aortic arch through the [place] of [place]. 3-dimensional mcjfflb-cjkejvfhg-cjqfgvjupt (MIP) and/or volume rendering reformats were acquired of the central intracranial vasculature and neck separately. For radiation dose reduction, the following was used: automated exposure control, adjustment of mA and/or kV according to patient size. COMPARISON: MRI of brain and MR angiogram of head and neck dated 01/02/2016. FINDINGS: Image quality: Diagnostic. BRAIN: CSF spaces: Ventricles are normal in size and shape. Basal cisterns are patent. No extra-axial fluid collections. Brain: No significant abnormality of the brain can be seen. Skull and face: Calvarium and facial bones appear intact, without suspicious lesions. Orbits appear normal. Sinuses: Sinuses and mastoids are clear. HEAD CT ANGIOGRAPHY: Anterior circulation: Intracranial internal carotid arteries are normal in size and flow. The flow within the paired anterior cerebral arteries is normal and symmetric. The flow within the middle cerebral arteries is normal and symmetric. The anterior communicating artery is seen. No aneurysms are seen. Posterior circulation: Dominant right vertebral artery is again seen. There is a normal appearing basilar artery. Flow within the posterior cerebral arteries is normal and symmetric. No aneurysms are seen. NECK CT ANGIOGRAPHY: Carotid system: The great vessels demonstrate a conventional anatomy as they arise from the aortic arch. The origins of the common carotid arteries appear patent. The common carotid arteries demonstrate normal caliber and courses. The bifurcation regions are both widely patent. The internal carotid arteries demonstrate normal calibers and courses. Posterior circulation: Stenosis involving origin of left vertebral artery is again seen unchanged from 2016 study. Dominant right vertebral artery. The more superior extracranial portions of both vertebral arteries also demonstrate normal courses and calibers. They join to form a normal appearing basilar artery. Soft tissues: Visualized neck soft tissues demonstrate no suspicious abnormalities. Bones: No suspicious bony lesions. Visualized cervical spine appears normally aligned. IMPRESSION: 1. No hemodynamically significant stenosis or aneurysm is seen in the intracranial circulation. 2. There is no carotid dissection seen on the current study and is unchanged from 2016 study. No hemodynamically significant stenosis are noted in bilateral carotid arteries. 3. 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 Any quantitative measurements of stenosis were performed using NASCET criteria. Dictated by: Berlin Lind M.D. on 08/31/2024 at 20:09 Approved by: Berlin Lind M.D. on 08/31/2024 at 20:17 CT angiogram chest and abdomen: Radiologist's Impression: [address] [address] [address] Scan Report Signed Patient: Virgie Basilio MR#: [id number] : 1970 Acct:[id number] Age/Sex: 54 / F Date of Service: 08/31/24 Loc: ED Accession Number: [id number] Procedure: CT angio chest abdomen Ordering Provider: Sean Quinn MD PROCEDURE: CT ANGIO CHEST ABDOMEN INDICATIONS: hx carotid dissection, neck/chest pain TECHNIQUE: Precontrast 5 mm thick sections acquired from the lung apices to the iliac crests. After the administration of intravenous contrast, 2.5 mm thick sections again acquired from the lung apices to the iliac crests. 10 mm maximum intensity projection (MIP) oblique sagittal and coronal reformats were then acquired. For radiation dose reduction, the following was used: automated exposure control. COMPARISON: CT angiogram of chest dated 08/04/2017. FINDINGS: Image quality: Diagnostic. AORTA: No aortic aneurysm. No acute aortic syndrome. CHEST: Lower Neck: No enlarged lymph nodes. Thyroid: No thyroid nodules which require sonographic evaluation. Axillae: No enlarged lymph nodes. Chest Wall: Unremarkable. Bones: No aggressive appearing bony lesions.. Lungs and Pleura: No pneumothorax or pleural effusions. 4 mm solid nodule in lateral left lung base series 6, image 233. 4 mm solid nodule is also seen at posterior left lung base series 6, image 231. Both were seen on previous study in 2018 suggestive of benign process. No consolidation or suspicious nodules. Heart: Heart size is normal. No pericardial effusion. Thoracic Vessels: The pulmonary arteries show normal size . No gross intraluminal filling defects are seen. Mediastinum and Tita: No enlarged lymph nodes. Esophagus: No wall thickening. No hiatal hernia. ABDOMEN: Liver: 1.9 x 1.9 cm peripherally nodular enhancing hypodense lesion is seen in posterior right hepatic dome series 5, image 108. No other solid appearing hepatic lesion. Moderate hepatic steatosis. Gallbladder: No radiopaque gallstones or wall thickening. Biliary ducts: No biliary dilation. Pancreas: No ductal dilation. Spleen: Size is within normal limits. Adrenal Glands: No adrenal nodules. Kidneys and Ureters: No hydronephrosis. No solid mass. No complex renal cystic lesion which requires follow up. Stomach and Bowel: Normal colonic caliber, without significant wall thickening. No abscess collection. Appendix is visualized and is within normal limits. Peritoneum: No abnormal intraperitoneal fluid. No free air. Ventral Wall: No hernia. Abdominal Nodes: No retroperitoneal or mesenteric adenopathy by size criteria. Vessels: Inferior vena cava is normal in size. Bones: No aggressive osseous abnormality. IMPRESSION: 1. No aortic aneurysm or dissection. No pulmonary emboli. 2. Stable tiny left basilar pulmonary nodules suggestive of benign process. No suspicious pulmonary nodule. No focal infiltrate, pleural effusion or pneumothorax. 3. No acute inflammatory process is seen in the abdomen. 4. Likely 1.9 cm hemangioma in posterior right hepatic dome. Dictated by: Berlin Lind M.D. on 08/31/2024 at 20:42 Approved by: Berlin Lind M.D. on 08/31/2024 at 20:51 ECG Data Attestation: I personally reviewed and interpreted this ECG as follows: Interpretation: Normal sinus rhythm with rate of 92, no obvious ST segment elevation or depression changes. AK 158, QRS 88, QTC 450. [facility] Narrative Medical decision making narrative: 54-year-old female with history of prior right-sided carotid dissection treated medically 2012 [facility], had follow up imaging studies for 18 months, no recurrence, now having recent upper abdominal pain and right upper quadrant abdominal pain, outpatient ultrasound gallbladder unremarkable, awaiting possible HIDA scan, awaiting possible lower endoscopy, unclear if she is also awaiting upper endoscopy, tonight having anterior chest discomfort, epigastric pain, also right sided neck pain that felt similar to her previous dissection. No known dissection to the aortic arch thoracic or abdominal or or infrarenal. No known coronary artery disease. Screening EKG unremarkable. Initial troponin negative. Still having discomfort. Declines IV morphine when offered. IV Pepcid. Renal function favorable. CT angiogram head and neck vessels ordered. CT angiogram chest abdomen ordered. Case discussion with medical technologist chemistry regarding patient's history of carotid dissection with chest and neck discomfort, sequencing will likely be with head and neck vessel study 1st, and then Re sequencing for chest abdomen imaging. Patient agreeable to this plan. IV fluid bolus. Keep NPO for now. Initial lab data: White blood cell count 6800, hemoglobin 14.2, platelets adequate. Glucose 105. BUN 14 with creatinine 0.68 normal renal function. Electrolytes unremarkable, serum CO2 24 normal. Liver functions and lipase normal. Troponin negative/unmeasurable. BNP normal. CT angiogram head and neck vessels, no thrombosis, no narrowing, no dissection. See radiology report. CT angiogram chest abdomen, no aortic abnormalities, no acute changes. Incidental liver dome hemangioma noted, not hemorrhagic. See radiology report. Copy of reports given to patient, pointed out stable appearing lung nodules incidental finding, liver hemangioma incidental finding, no acute changes head and neck vessels, aorta, thoracic upper abdominal vessels. Follow up advised with PCP for further workup as planned. Trial of omeprazole given her upper abdominal pain. She reported that she we will be possibly having HIDA scan, lower/upper endoscopy as an outpatient. Follow up with PCP as above for further workup. Return precautions discussed. Home with family. Discharge Plan Departure Patient Disposition: Home Clinical Impression: Chest pain, Neck pain, Abdominal pain Instructions: DI for Chest Pain Activity Restrictions/Additional Instructions: Ms Basilio, You had reported prior history of nontraumatic right carotid artery dissection that was treated medically a number of years ago. You have recent abdominal pain for which outpatient ultrasound of the gallbladder was done. You are awaiting possible HIDA scan, possible endoscopy evaluations for this belly pain. You had some lower chest discomfort and also right neck discomfort today of unclear cause. CT angiogram of the head and neck vessels were done, no dissection or other abnormalities found. CT angiogram of the aorta of the chest and upper abdomen was also performed, no acute changes noted in those vessels, nor in the visualized chest and abdomen. There was an incidental hemangioma g noted in the dome of the liver, not felt to be hemorrhagic or bleeding, not likely causing any recent pain. EKG and blood tests not suggestive of heart attack at this time. Consider antacid trial while awaiting further follow up. Prescription omeprazole sent to your pharmacy to try while awaiting further follow up. Follow up with your regular provider as planned. You might be having other tests such as HIDA scan and endoscopy upper and lower as an outpatient. Further cardiac testing as an outpatient if needed as needed as an outpatient for now. Return earlier to this/nearest emergency department for any change worsening symptoms or any concerns prior. Thank you for allowing our team to evaluate you today. Prescriptions: New omeprazole 20 mg capsule,delayed release(DR/EC) 20 mg PO DAILY 30 Days Qty: 30 0RF No Action ascorbic acid (vitamin C) 500 mg Tablet Qty: 0 magnesium 200 mg Tablet Qty: 0 coenzyme Q10 [Co Q-10] 100 mg Capsule Qty: 0 verapamil 120 mg tablet extended release 120 mg PO BID Qty: 180 3RF valacyclovir 1 gram tablet 1,000 mg PO TID Qty: 90 0RF albuterol sulfate 90 mcg/actuation HFA aerosol inhaler 2 puff inhalation Q4-6H PRN (Reason: shortness of breath or wheezing) Qty: 8.5 1RF vitamin B complex [B Complex-Vitamin B12] tablet 1 tab PO DAILY triamcinolone acetonide 0.1 % cream 1 applic topical TID Qty: 80 0RF cholecalciferol (vitamin D3) 50 mcg (2,000 unit) capsule 50 mcg PO .2-3x week cyclobenzaprine 10 mg tablet 10 mg PO TID PRN (Reason: muscle spasm) Qty: 60 1RF Referrals: Zach Johnson MD [Primary Care Provider] - Stand Alone Forms: Patient Portal/API/Survey
--- NOTE | 2024-08-31 19:05 | PC.NURSE ---
left arm: 169/88 Right arm: 185/90
[2024-08-31 19:08] LABS: NT-proBNP (BNP-Adult 18+) 47 pg/mL (<125); Troponin I < 0.012 ng/mL (0.01-0.034)
--- NOTE | 2024-08-31 19:11 | PC.NURSE ---
Left arm BP 181/92
--- NOTE | 2024-08-31 19:11 | PC.NURSE ---
Right arm BP 176/94
--- NOTE | 2024-08-31 19:13 | DI.CT.S_ITS ---
PROCEDURE: CT ANGIO CHEST ABDOMEN INDICATIONS: hx carotid dissection, neck/chest pain TECHNIQUE: Precontrast 5 mm thick sections acquired from the lung apices to the iliac crests. After the administration of intravenous contrast, 2.5 mm thick sections again acquired from the lung apices to the iliac crests. 10 mm maximum intensity projection (MIP) oblique sagittal and coronal reformats were then acquired. For radiation dose reduction, the following was used: automated exposure control. COMPARISON: CT angiogram of chest dated 08/04/2017. FINDINGS: Image quality: Diagnostic. AORTA: No aortic aneurysm. No acute aortic syndrome. CHEST: Lower Neck: No enlarged lymph nodes. Thyroid: No thyroid nodules which require sonographic evaluation. Axillae: No enlarged lymph nodes. Chest Wall: Unremarkable. Bones: No aggressive appearing bony lesions.. Lungs and Pleura: No pneumothorax or pleural effusions. 4 mm solid nodule in lateral left lung base series 6, image 233. 4 mm solid nodule is also seen at posterior left lung base series 6, image 231. Both were seen on previous study in 2018 suggestive of benign process. No consolidation or suspicious nodules. Heart: Heart size is normal. No pericardial effusion. Thoracic Vessels: The pulmonary arteries show normal size . No gross intraluminal filling defects are seen. Mediastinum and Tita: No enlarged lymph nodes. Esophagus: No wall thickening. No hiatal hernia. ABDOMEN: Liver: 1.9 x 1.9 cm peripherally nodular enhancing hypodense lesion is seen in posterior right hepatic dome series 5, image 108. No other solid appearing hepatic lesion. Moderate hepatic steatosis. Gallbladder: No radiopaque gallstones or wall thickening. Biliary ducts: No biliary dilation. Pancreas: No ductal dilation. Spleen: Size is within normal limits. Adrenal Glands: No adrenal nodules. Kidneys and Ureters: No hydronephrosis. No solid mass. No complex renal cystic lesion which requires follow up. Stomach and Bowel: Normal colonic caliber, without significant wall thickening. No abscess collection. Appendix is visualized and is within normal limits. Peritoneum: No abnormal intraperitoneal fluid. No free air. Ventral Wall: No hernia. Abdominal Nodes: No retroperitoneal or mesenteric adenopathy by size criteria. Vessels: Inferior vena cava is normal in size. Bones: No aggressive osseous abnormality. IMPRESSION: 1. No aortic aneurysm or dissection. No pulmonary emboli. 2. Stable tiny left basilar pulmonary nodules suggestive of benign process. No suspicious pulmonary nodule. No focal infiltrate, pleural effusion or pneumothorax. 3. No acute inflammatory process is seen in the abdomen. 4. Likely 1.9 cm hemangioma in posterior right hepatic dome. Dictated by: Berlin Lind M.D. on 08/31/2024 at 20:42 Approved by: Berlin Lind M.D. on 08/31/2024 at 20:51
--- NOTE | 2024-08-31 19:13 | DI.CT.S_ITS ---
PROCEDURE: CT ANGIO HEAD AND NECK INDICATIONS: hx carotid dissection, neck/chest pain TECHNIQUE: After the administration of intravenous contrast, 1 mm thick sections acquired from the aortic arch through the Gap of [place]. 3-dimensional zujvxft-devddlcbg-jciqcorzvb (MIP) and/or volume rendering reformats were acquired of the central intracranial vasculature and neck separately. For radiation dose reduction, the following was used: automated exposure control, adjustment of mA and/or kV according to patient size. COMPARISON: MRI of brain and MR angiogram of head and neck dated 01/02/2016. FINDINGS: Image quality: Diagnostic. BRAIN: CSF spaces: Ventricles are normal in size and shape. Basal cisterns are patent. No extra-axial fluid collections. Brain: No significant abnormality of the brain can be seen. Skull and face: Calvarium and facial bones appear intact, without suspicious lesions. Orbits appear normal. Sinuses: Sinuses and mastoids are clear. HEAD CT ANGIOGRAPHY: Anterior circulation: Intracranial internal carotid arteries are normal in size and flow. The flow within the paired anterior cerebral arteries is normal and symmetric. The flow within the middle cerebral arteries is normal and symmetric. The anterior communicating artery is seen. No aneurysms are seen. Posterior circulation: Dominant right vertebral artery is again seen. There is a normal appearing basilar artery. Flow within the posterior cerebral arteries is normal and symmetric. No aneurysms are seen. NECK CT ANGIOGRAPHY: Carotid system: The great vessels demonstrate a conventional anatomy as they arise from the aortic arch. The origins of the common carotid arteries appear patent. The common carotid arteries demonstrate normal caliber and courses. The bifurcation regions are both widely patent. The internal carotid arteries demonstrate normal calibers and courses. Posterior circulation: Stenosis involving origin of left vertebral artery is again seen unchanged from 2016 study. Dominant right vertebral artery. The more superior extracranial portions of both vertebral arteries also demonstrate normal courses and calibers. They join to form a normal appearing basilar artery. Soft tissues: Visualized neck soft tissues demonstrate no suspicious abnormalities. Bones: No suspicious bony lesions. Visualized cervical spine appears normally aligned. IMPRESSION: 1. No hemodynamically significant stenosis or aneurysm is seen in the intracranial circulation. 2. There is no carotid dissection seen on the current study and is unchanged from 2016 study. No hemodynamically significant stenosis are noted in bilateral carotid arteries. 3. 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 Any quantitative measurements of stenosis were performed using NASCET criteria. Dictated by: Berlin Lind M.D. on 08/31/2024 at 20:09 Approved by: Berlin Lind M.D. on 08/31/2024 at 20:17
--- NOTE | 2024-08-31 19:55 | PC.NURSE ---
to CT per WC
[2024-08-31] MEDS: SODIUM CHLORIDE 0.9% 1,000 ML 1000 ML IV ×2 (20:20→21:05)
[2024-08-31] MEDS: FAMOTIDINE 20 MG/2 ML VIAL IV (20:20)
[2024-08-31 21:30] LABS: Troponin I < 0.012 ng/mL (0.01-0.034)
== END 2024-08-31 22:13 | disposition home or self-care (01) ==
PROVIDERS: Emergency Provider Emergency Medicine; PCP Internal Medicine
DX: R07.9 Chest pain, unspecified (principal); R06.02 Shortness of breath; M54.2 Cervicalgia
CPT/HCPCS: 36415; 70496; 70498; 71045; 71275; 74175; 80053; 82550; 83690; 83735; 83880; 84484; 85025; 85610; 85730; 93005; 96361; 96374; 99284; Q9967

== ENCOUNTER 2024-11-01 06:20 | Day surgery (SDC) | payer OTHER, SELFPAY ==
--- NOTE | 2024-11-01 | PATH_ITS ---
[facility] Accession Number: [id number] No. of containers..03 Tissue . 01 Material submitted: . PART A: gastrointestinal site - GASTRIC POLYP PART B: esophagus, E-G Junction - GE JUNCTION POLYP PART C: colon - COLON, DESCENDING POLYP . 01 Diagnosis: A. GASTRIC POLYP: Fundic gland polyp. No Helicobacter pylori organisms identified on H/E slide. No intestinal metaplasia, dysplasia, or malignancy. . B. GE JUNCTION POLYP: Squamocolumnar junctional mucosa with reactive foveolar hyperplasia. See comment. No goblet cell metaplasia or fungal organisms identified on AB/PAS stain, with control staining appropriately. No dysplasia or malignancy. . C. DESCENDING COLON POLYP: Hyperplastic polyp. V 11/06/2024 1233 Local . 01 Comment: B. The presence of foveolar hyperplasia may correlate with the polypoid appearance on endoscopy and may represent either a reactive process or an early gastric hyperplastic polyp. . 01 Electronically signed: . Asha Ng MD, Pathologist NPI- [id number] . 01 Gross description: . A. Received in formalin with two patient identifiers and 1. Gastric polyp, are three del real soft tissue fragments, 0.2 to 0.3 cm in greatest dimension, submitted in A1. B. Received in formalin with two patient identifiers and 2. GE junction polyp, are two del real and brown soft tissue fragments, both measuring 0.3 cm in greatest dimension, submitted in B1. C. Received in formalin with two patient identifiers and 3. Descending colon polyp, is a single del real soft tissue fragment 0.4 cm in greatest dimension, submitted in C1. ([id number]) /MRV 11/03/2024 1747 Local . 01 Pathologist provided ICD-10: D13.1 . 01 CPT . 892867, 646380, 033538, 230463 Specimen Comment: A courtesy copy of this report has been sent to [phone] Performed at: [address] [id number] MD Sagar Kimble MD Phone: [phone]
[2024-11-01 07:16] VITALS: BP 164/102; PULSE 91; RESP 17; TEMP 36.2; O2SAT 100
[2024-11-01] MEDS: LACTATED RINGERS 1,000 ML 42 ML IV (07:27)
--- NOTE | 2024-11-01 07:39 | P.HP_ITS ---
History of Present Illness History of Present Illness Date Patient Seen: 11/01/24 Time Patient Seen: 07:39 [place] [facility] [place]ative: Virgie is a 54-year-old woman with abdominal pain and dysphagia. See the office note from August for details. 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) Surgical History Status post cystoscopy (01/21/14) Status post bilateral salpingectomy (01/21/14) Status post total hysterectomy (01/21/14) Status post breast biopsy Status post cone biopsy of cervix (10/08/08) Status post delivery Family History Father Diabetes mellitus Hypertension Grandfather Diabetes mellitus Grandmother [place] (myocardial infarction) Social History Smoking Status: Former smoker alcohol intake: never substance use type: does not use Meds Home Medications and Allergies Home Medications Medication Instructions Recorded Confirmed Type valacyclovir 1 gram tablet 1,000 mg PO TID #90 tabs 06/08/11 11/01/24 Rx ascorbic acid (vitamin C) 500 mg ##0 08/04/17 09/17/24 History tablet coenzyme Q10 100 mg capsule (Co ##0 08/04/17 09/17/24 History Q-10) magnesium 200 mg tablet ##0 08/04/17 09/17/24 History vitamin B complex (B 1 tab PO DAILY 02/15/19 09/17/24 History Complex-Vitamin B12 tablet) cholecalciferol (vitamin D3) 50 50 mcg PO .2-3x week 05/30/20 11/01/24 History mcg (2,000 unit) capsule verapamil 120 mg tablet,extended 120 mg PO BID #180 tabs 03/02/22 11/01/24 Rx release triamcinolone acetonide 0.1 % 1 applic topical TID #80 grams 01/13/24 09/17/24 Rx topical cream albuterol sulfate 90 mcg/actuation 2 puff inhalation Q4-6H PRN 04/04/24 11/01/24 Rx aerosol inhaler shortness of breath or wheezing #8.5 grams Allergies Allergy/AdvReac Type Severity Reaction Status Date / Time Sulfa (Sulfonamide Allergy Intermediate Verified 09/17/24 14:36 Antibiotics) [SULFA (SULFONAMIDE ANTIBIOTICS)] sulfamethoxazole Allergy Unknown Verified 09/17/24 14:36 [From ] trimethoprim [From ] Allergy Unknown Verified 09/17/24 14:36 lisinopril AdvReac Intermediate felt weird Verified 09/17/24 14:36 propranolol AdvReac Intermediate felt wierd Verified 09/17/24 14:36 Exam Vital Signs (past 8 hours): - 11/01/24 07:16 Temperature 97.2 F L Pulse Rate 91 H Respiratory Rate 17 Blood Pressure 164/102 H Pulse Oximetry 100 Oxygen Delivery Method Room Air Oxygen Delivery Method Room Air Const General: No acute distress Assessment & Plan Assessment and plan (1) Colon cancer screening: Status: Acute (2) Dyspepsia: Status: Acute (3) Dysphagia: Qualifiers: Dysphagia type: unspecified Qualified Code(s): R13.10 - Dysphagia, unspecified Status: Acute Plan EGD and colonoscopy Time-Based Coding :: [TOTAL MINUTES] spent with patient and on the chart (including review of chart, obtaining history, exam, reviewing outside data, placing orders, documenting exam and treatment plan, and counseling patient) on [DATE]. PROFEE Reexaminer Document charge(s): No
--- NOTE | 2024-11-01 08:01 | SUR.OPER ---
[address] [facility]
[2024-11-01 08:14] VITALS: BP 143/86; PULSE 75; RESP 16; TEMP 36.2; O2SAT 100
--- NOTE | 2024-11-01 08:17 | PM.OP.EC ---
Operative Date/Time/Diagnoses Date of procedure: 11/01/24 Time of procedure: 08:17 Pre-op diagnosis: Abdominal pain and dysphagia Post-op diagnosis: same Procedure & Clinicians Study performed: EGD and colonoscopy Same procedure as scheduled: Yes Surgeon: Victor Manuel Garg Procedure Notes Procedure in detail: Surgeon: Victor Manuel Garg MD Anesthesia: Hyacinth Greenwood CRNA Procedure in detail: A timeout was performed. A bite blocked was placed and monitors were attached to the patient. The patient was positioned in the left lateral decubitus position. Sedation was administered. Once the patient was sedated the endoscope was inserted through the bite block and passed through the esophagus and stomach and into the duodenum. The duodenum appeared normal. We then withdrew the scope into the stomach. There were multiple polyps in the proximal stomach some of which were rather large. Biopsies were taken with standard forceps from the largest polyp in the midportion of the stomach. The endoscope was retroflexed and no hiatal hernia was seen. The endoscope was straightned and withdrawn into the esophagus. There was a polyp at the GE junction and biopsies were taken forceps. The rest of the esophagus was normal. EGD findings: Multiple polyps in the proximal stomach and one polyp at the GE junction Next we repositioned the patient for a colonoscopy. A digital rectal exam was performed and was normal. The colonoscope was inserted and advanced to the cecum. The appendiceal orifice was identified and photographed. The scope was slowly withdrawn over greater than 6 minutes. There was a 5 mm polyp in the descending colon near the splenic flexure removed with a cold snare. No other abnormalities were seen in the colon. The scope was retroflexed in the rectum and no other abnormalities were found. Colonoscopy findings: 5 mm polyp in the descending colon Total procedural EBL: 5 mL Scope withdrawal time: 9 minutes Sedation minutes: 25 minutes Post-procedure Disposition: PACU
[2024-11-01 08:24] VITALS: BP 147/85; PULSE 75; RESP 16; O2SAT 100
[2024-11-01 08:33] VITALS: BP 143/86; PULSE 72; O2SAT 100
== END 2024-11-01 08:46 | disposition home or self-care (01) ==
PROVIDERS: PCP Internal Medicine; Referring Provider Surgery; Visit Provider Surgery
PROC: 0DJ08ZZ Inspection of Upper Intestinal Tract, Via Natural or Artificial Opening Endoscopic (ICD-10-PCS; CPT 45385; principal; 2024-11-01 07:45)
PROC: 0DJD8ZZ Inspection of Lower Intestinal Tract, Via Natural or Artificial Opening Endoscopic (ICD-10-PCS; CPT 45378; 2024-11-01 07:45)
DX: R10.9 Unspecified abdominal pain (principal); R13.10 Dysphagia, unspecified; K31.7 Polyp of stomach and duodenum; K63.5 Polyp of colon
CPT/HCPCS: 45385; 43239; J2704

== ENCOUNTER 2025-05-17 09:16 | Emergency (ER) | payer OTHER, SELFPAY ==
[2025-05-17] VITALS (7 sets, daily range): BP systolic 184–202; BP diastolic 81–107; PULSE 72–91; RESP 13; TEMP 36.8; O2SAT 97–100; BMI 32.2
--- NOTE | 2025-05-17 09:51 | DI.US.S_ITS ---
PROCEDURE: US PERIPH VENOUS UP EXTREM RT INDICATIONS: right arm pain TECHNIQUE: Real-time imaging, as well as color and pulse Doppler interrogation, was performed of the upper extremity deep veins from the inferior neck to the antecubital fossa. COMPARISON: None. FINDINGS: The internal jugular vein, visualized portions of the subclavian vein, axillary, and brachial veins are free of intraluminal thrombus. Where physically possible, the veins are normally compressible. Color and pulse Doppler demonstrate normal intraluminal flow, with expected phasicity and pulsatility. Additional scanning of the cephalic and basilic veins of the superficial system demonstrates normal compressibility, without thrombus. IMPRESSION: No findings of upper extremity deep venous thrombosis can be seen. Dictated by: Silverio Mcfadden M.D. on 05/17/2025 at 10:54 Approved by: Silverio Mcfadden M.D. on 05/17/2025 at 10:55
--- NOTE | 2025-05-17 09:51 | DI.RAD.S_ITS ---
PROCEDURE: XR HAND RT MIN 3V INDICATIONS: right hand pain TECHNIQUE: 3 views of the hand(s) acquired. COMPARISON: None. FINDINGS: Bones: No fractures or dislocations. Carpal bones are normally aligned. No suspicious bony lesions. Soft tissues: No suspicious soft tissue calcifications. IMPRESSION: No acute right hand fracture or dislocation. Dictated by: Berlin Lind M.D. on 05/17/2025 at 10:36 Approved by: Berlin Lind M.D. on 05/17/2025 at 10:37
--- NOTE | 2025-05-17 09:51 | DI.US.S_ITS ---
PROCEDURE: US ARTERIAL DUPLEX UE RT INDICATIONS: right arm pain. TECHNIQUE: Color and pulse Doppler interrogation was performed of right upper extremity arterial systems, with image documentation. COMPARISON: None. FINDINGS: Right upper extremity: Subclavian artery (proximal): 141 cm/sec, with triphasic flow. Subclavian artery (mid): 101 cm/sec, with triphasic flow. Subclavian artery (distal): 83 cm/sec, with triphasic flow. Axillary artery: 98 cm/second with triphasic flow Brachial artery (proximal): 123 cm/sec, with triphasic flow. Brachial artery (mid): 99 cm/sec, with triphasic flow. Brachial artery (distal): 110 cm/sec, with triphasic flow. Radial artery (proximal): 52 cm/sec, with triphasic flow. Radial artery (mid): 60 cm/sec, with triphasic flow. Radial artery (distal): 30 cm/sec, with triphasic flow. Ulnar artery (proximal): 85 cm/sec, with triphasic flow. Ulnar artery (mid): 80 cm/sec. with triphasic flow. Ulnar artery (distal): 77 cm/sec, with triphasic flow. Carrillo-scale imaging description: No plaque IMPRESSION: Normal right upper extremity arterial ultrasound. Dictated by: Jose D Victoria M.D. on 05/17/2025 at 10:59 Approved by: Jose D Victoria M.D. on 05/17/2025 at 11:03
--- NOTE | 2025-05-17 09:53 | ED.EXTPRO ---
HPI - Extremity Problem General Chief complaint: Extremity Problem,Nontraumatic Stated complaint: Sudden right hand pain, white and cold Time Seen by Provider: 05/17/25 09:31 Source: patient Mode of arrival: Ambulatory History of Present Illness HPI Narrative: 55 years old female came in today complaining of right hand pain especially of the right thumb and right index since last night without any injury, numbness weakness on her legs. The pain got worse with the movement of her right hand especially in the right thumb and right index. She also feeling stiffness. She denies similar symptoms in the past. She has had chronic neck pain without any changes. She went to see her primary care doctor and was sent to our ED. she otherwise denied any fever, rhinorrhea, sore throat, coughing, chest pain, shortness of breath, nausea vomiting, injury. Last night she took her tramadol and put the velcro wrist splint and she was feeling better. Her primary care doctor thought it could be some blood vessel blocking. Related Data Home Medications ?Medication ?Instructions ?Recorded ?Confirmed magnesium 200 mg tablet ##0 08/04/17 05/17/25 vitamin B complex (B 1 tab PO DAILY 02/15/19 05/17/25 Complex-Vitamin B12 tablet) Previous Rx's ?Medication ?Instructions ?Recorded valacyclovir 1 gram tablet 1,000 mg PO TID #90 tabs 06/08/11 verapamil 120 mg tablet,extended 120 mg PO BID #180 tabs 03/02/22 release triamcinolone acetonide 0.1 % 1 applic topical TID #80 grams 01/13/24 topical cream albuterol sulfate 90 mcg/actuation 2 puff inhalation Q4-6H PRN 04/04/24 aerosol inhaler shortness of breath or wheezing #8.5 grams cyclobenzaprine 10 mg tablet 10 mg PO TID PRN muscle spasm #30 11/08/24 tabs losartan 50 mg tablet 50 mg PO DAILY #90 tabs 11/08/24 Massage Therapy #12 ea 12/17/24 tramadol 50 mg tablet 50 mg PO TID PRN pain #30 tabs 12/17/24 estradiol 0.05 mg/24 hr semiweekly 1 patch transdermal 2XW #8 ea 02/22/25 transdermal patch (Yarelis) hydrocodone 5 mg-acetaminophen 325 1 tab PO Q6H PRN pain #8 tabs 05/17/25 mg tablet Allergies Allergy/AdvReac Type Severity Reaction Status Date / Time Sulfa (Sulfonamide Allergy Intermediate Verified 05/17/25 09:40 Antibiotics) (SULFA (SULFONAMIDE ANTIBIOTICS)) sulfamethoxazole (From Allergy Unknown Verified 05/17/25 09:40 SEPTRA) trimethoprim (From ) Allergy Unknown Verified 05/17/25 09:40 lisinopril AdvReac Intermediate felt weird Verified 05/17/25 09:40 propranolol AdvReac Intermediate felt wierd Verified 05/17/25 09:40 Review of Systems Review of Systems Narrative: Positive for right hand pain especially right thumb and right index worsening with movement. Negative for numbness, weakness of her right arm, right hand, chest pain, shortness of breath, fever, nausea vomiting, diarrhea, abdominal pain, urine problem, fever, injury. 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) Surgical History Status post cystoscopy (01/21/14) Status post bilateral salpingectomy (01/21/14) Status post total hysterectomy (01/21/14) Status post breast biopsy Status post cone biopsy of cervix (10/08/08) Status post delivery Family History Father Diabetes mellitus Hypertension Grandfather Diabetes mellitus Grandmother [place] (myocardial infarction) Social History Smoking Status: Unknown if ever smoked alcohol intake: never substance use type: does not use Smoking Status: Unknown if ever smoked alcohol intake frequency: 0-2 drinks per day Exam Narrative Exam Narrative: GENERAL: Alert awake without acute distress. HEAD: Atraumatic. Normocephalic. NECK: Trachea midline. Non tender CARDIOVASCULAR: Regular rate and rhythm without murmurs, gallops, or rubs. 2+ right radial pulse. Normal cap refill or fingers right hand. RESPIRATORY: Clear to auscultation. Breath sounds equal bilaterally. No wheezes, rales, or rhonchi. GASTROINTESTINAL: Abdomen soft, non-tender, nondistended. EXTREMITIES: No edema or joint tenderness. tenderness on palpation of the right thumb, right index and radial aspect of the right wrist without swelling, erythema, ecchymosis, deformity. Limitation range of motion of the right 1st and 2nd finger. BACK: Nontender without deformity or crepitance. No flank tenderness. NEURO: AOx3. Normal sensation on right hand. SKIN: No rash or erythema of visible areas Initial Vital Signs Initial Vital Signs: Vital Signs Temperature 98.2 F 05/17/25 09:17 Pulse Rate 85 05/17/25 09:17 Respiratory Rate 13 05/17/25 09:17 Blood Pressure 202/107 H 05/17/25 09:17 Pulse Oximetry 100 05/17/25 09:17 Oxygen Delivery Method Room Air 05/17/25 09:17 Course Orders Ordered: ED Orders 05/17/25 09:51 US arterial duplex UE RT Stat US periph venous up extrem rt Stat XR hand RT min 3V Stat 05/17/25 10:08 CBC Auto Diff [Complete Blood Count AUTO DIFF] Stat CMP [Comprehensive Metabolic Panel] Stat PT [Prothrombin Time INR] Stat Discontinued Medications Hydrocodone Bitart/Acetaminophen (Hydrocodone/Acet 5/325 Tablet) 1 tab PO NOW ONE Stop: 05/17/25 10:46 Last Admin: 05/17/25 10:52 Dose: 1 tab Documented By: CTS Vital Signs Vital signs: Vital Signs - 8 hr 05/17/25 09:17 05/17/25 09:24 05/17/25 09:24 Temperature 98.2 F Pulse Rate 85 91 H Respiratory Rate 13 Blood Pressure 202/107 H 202/107 H Pulse Oximetry 100 100 Oxygen Delivery Method Room Air 05/17/25 09:30 05/17/25 10:09 05/17/25 10:30 Temperature Pulse Rate 84 83 72 Respiratory Rate Blood Pressure Pulse Oximetry 98 99 97 Oxygen Delivery Method 05/17/25 10:47 05/17/25 10:47 Temperature Pulse Rate 81 Respiratory Rate Blood Pressure 184/81 H Pulse Oximetry 99 Oxygen Delivery Method MDM - Extremity (Nontraumatic) Lab Data 05/17/25 10:08 05/17/25 10:08 Labs: Lab Results 11/21/25 Range/Units 10:08 WBC 5.1 (4.5-11.0) X10^3/uL RBC 4.99 (4.0-5.2) X10^6/uL Hgb 14.3 (12.0-16.0) g/dL Hct 41.7 (36-46) % MCV 83.5 (80-100) fL MCH 28.7 (26-34) PG MCHC 34.4 (30-36) % RDW 13.2 (11.6-14.8) % Plt Count 267 (150-400) X10^3/uL Neut % (Auto) 58.7 (50-75) % Lymph % (Auto) 32.9 (25-40) % Twiggs % (Auto) 5.5 (3-14) % Eos % (Auto) 1.9 L (2-4) % Baso % (Auto) 1.0 (0-2) % Neut # (Auto) 3000 (3687-9290) /uL Lymph # (Auto) 1700 (0321-9310) /uL Twiggs # (Auto) 300 (0-900) /uL Eos # (Auto) 100 (0-450) /uL Baso # (Auto) 100 (0-100) /uL PT 11.3 (9.4-12.5) SECONDS INR 1.0 (0.9-1.3) Sodium 141 (137-145) mmol/L Potassium 4.3 (3.4-5.1) mmol/L Chloride 105 (98-107) mmol/L Carbon Dioxide 26 (22-32) mmol/L BUN 11 (7-17) mg/dL Creatinine 0.65 (0.52-1.04) mg/dL Estimated GFR > 60 (>60) mL/min BUN/Creatinine Ratio 16.9 (6-22) Glucose 96 (70-99) mg/dL Calcium 9.3 (8.4-10.2) mg/dL Total Bilirubin 0.5 (0.2-1.3) mg/dL AST 26 (14-36) IU/L ALT 21 (<35) IU/L Alkaline Phosphatase 65 (38-126) U/L Total Protein 7.7 (6.3-8.2) g/dL Albumin 4.7 (3.5-5.0) g/dL Globulin 3.0 (1.7-4.1) g/dL Albumin/Globulin Ratio 1.6 (1.0-2.8) MDM Narrative Medical decision making narrative: 55 years old female came in today complaining of right hand pain especially of the right thumb and right index since last night without any injury, numbness weakness on her legs. The pain got worse with the movement of her right hand especially in the right thumb and right index. She also feeling stiffness. She denies similar symptoms in the past. She has had chronic neck pain without any changes. She went to see her primary care doctor and was sent to our ED. she otherwise denied any fever, rhinorrhea, sore throat, coughing, chest pain, shortness of breath, nausea vomiting, injury. Last night she took her tramadol and put the velcro wrist splint and she was feeling better. Her primary care doctor thought it could be some blood vessel blocking. On exam showed 2+ right radial pulse. Normal capillary refills less than 2 seconds all 5 fingers of the right hand. tenderness on palpation of the right thumb, right index and radial aspect of the right wrist without swelling, erythema, ecchymosis, deformity. Limitation range of motion of the right 1st and 2nd finger. Her CV exam, lung exam, abdominal exam were normal. She alert oriented x4 without acute distress in the ED. The DVT ultrasound and duplex ultrasound of the right arm showed no acute finding. The right hand x-ray showed no acute finding. Her CBC, PT INR, CMP were normal. He was sent home with Vicodin. She will continue her Velcro wrist splint. I referred to follow up with orthopedist outpatient. I asked her to also follow up with her PCP and take ibuprofen as needed. She will drink plenty of fluid. Return to the ED precautions was given. Discharge Plan Departure Patient Disposition: Home Clinical Impression: De Quervain's disease (tenosynovitis), Sprain of right wrist Instructions: DI for Wrist Sprain, DI for De Quervain's Tenosynovitis Activity Restrictions/Additional Instructions: please continue with your Velcro wrist splint. Please follow up with your primary care doctor. Please set up an appointment with orthopedist. Please take ibuprofen as needed for pain control and drink plenty of fluid. Prescriptions: New hydrocodone-acetaminophen 5-325 mg tablet 1 tab PO Q6H PRN (Reason: pain) Qty: 8 0RF No Action magnesium 200 mg Tablet Qty: 0 verapamil 120 mg tablet extended release 120 mg PO BID Qty: 180 3RF valacyclovir 1 gram tablet 1,000 mg PO TID Qty: 90 0RF albuterol sulfate 90 mcg/actuation HFA aerosol inhaler 2 puff inhalation Q4-6H PRN (Reason: shortness of breath or wheezing) Qty: 8.5 1RF estradiol [Yarelis] 0.05 mg/24 hr patch semiweekly 1 patch transdermal 2XW Qty: 8 11RF Rx Instructions: apply 1 patch twice a week vitamin B complex [B Complex-Vitamin B12] tablet 1 tab PO DAILY triamcinolone acetonide 0.1 % cream 1 applic topical TID Qty: 80 0RF (DME) Massage Therapy See Rx Instructions .Route .MEDSUPPLY Qty: 12 0RF Rx Instructions: massage therapy up to weekly for 12 sessions tramadol 50 mg tablet 50 mg PO TID PRN (Reason: pain) Qty: 30 0RF cyclobenzaprine 10 mg tablet 10 mg PO TID PRN (Reason: muscle spasm) Qty: 30 0RF losartan 50 mg tablet 50 mg PO DAILY Qty: 90 3RF Referrals: Mike Finnegan MD [Physician, Orthopedic Surgery] Clinical Impression: De Quervain's disease (tenosynovitis); Sprain of right wrist Zach Johnson MD [Primary Care Provider, Internal Medicine] Stand Alone Forms: Patient Portal/API
[2025-05-17 10:26] LABS: Add Manual Diff / Slide Review NO; Hematocrit 41.7 % (36-46); Hemoglobin 14.3 g/dL (12.0-16.0); Lymphocytes Absolute Auto 1700 /uL (1100-4500); Mean Corpuscular HGB Conc 34.4 % (30-36); Mean Corpuscular Hemoglobin 28.7 PG (26-34); Mean Corpuscular Volume 83.5 fL (80-100); Platelet Count 267 X10^3/uL (150-400)
[2025-05-17 10:36] LABS: INR 1.0 (0.9-1.3); Prothrombin Time 11.3 SECONDS (9.4-12.5)
[2025-05-17 10:41] LABS: Alanine Aminotransferase 21 IU/L (<35); Albumin 4.7 g/dL (3.5-5.0); Albumin Globulin Ratio 1.6 (1.0-2.8); Alkaline Phosphatase 65 U/L (38-126); Blood Urea Nitrogen 11 mg/dL (7-17); Calcium 9.3 mg/dL (8.4-10.2); Carbon Dioxide 26 mmol/L (22-32); Chloride 105 mmol/L (98-107); Estimated Glomerular Filt Rate > 60 mL/min (>60); Globulin 3.0 g/dL (1.7-4.1); Glucose 96 mg/dL (70-99); HEMOLYSIS < 15 (0-50); Potassium 4.3 mmol/L (3.4-5.1); Sodium 141 mmol/L (137-145); Total Protein 7.7 g/dL (6.3-8.2)
== END 2025-05-17 11:45 | disposition home or self-care (01) ==
PROVIDERS: Emergency Provider Emergency Medicine; PCP Internal Medicine
DX: M65.4 Radial styloid tenosynovitis [de Quervain] (principal); S63.501A Unspecified sprain of right wrist, initial encounter; X58.XXXA Exposure to other specified factors, initial encounter
CPT/HCPCS: 36415; 73130; 80053; 85025; 85610; 93931; 93971; 99283; 99284

== ENCOUNTER → 2025-06-11 08:27 | Outpatient (CLI) | payer OTHER, SELFPAY ==
--- NOTE | 2025-06-11 08:28 | DI.MG.S_ITS ---
US breast LT limited, MM diagnostic mammo BI: 06/11/2025 BI-RADS: 4 CLINICAL: 55-year old female for bilateral diagnostic mammogram and left diagnostic breast ultrasound. Tyrer-Cuzick lifetime risk of 9.2%. No personal or first- degree family history of breast cancer. The patient reports puffiness (6 months) in the left breast. The patient had a prior left breast biopsy. PRIOR EXAMS 09/30/2021. MAMMOGRAPHY TECHNIQUE: 2D and 3D (tomosynthesis) digital mammographic views obtained, with additional images as needed for full coverage. Current study was also evaluated with a Computer Aided Detection (CAD) system. ULTRASOUND TECHNIQUE Real-time arthur scale and color doppler imaging of the area of clinical interest was performed with image documentation. TARGETED Left Breast Ultrasound: Real-time ultrasound exam was performed focused to area of clinical and/or imaging concern. DENSITY C. The breasts are heterogeneously dense, which may obscure small masses. MAMMOGRAPHY FINDINGS Right: No suspicious mass, asymmetry, microcalcification, or other abnormality seen. Left: Upper at 12:00, Middle depth: There is an area of architectural distortion present. This is lateral to the patient's area of postsurgical scarring and appears to be new compared to the 09/30/2021 study. Left: Upper Inner at 11:00, Middle depth: There is an area of architectural distortion from post-surgical scarring. This appears more prominent compared to the prior exam. Left (finding-1): Inner Central, Middle depth: Underlying surface marker and correlating with patient concern there is skin thickening present. ULTRASOUND FINDINGS Left: Upper at 12:00, 7 cm from nipple, measuring 0.5 x 0.4 x 0.7 cm: There are clustered microcysts. Doppler shows no vascularity. This is an incidental finding. Left (finding-1): Upper Inner at 10:00, 7 cm from nipple: Underlying surface marker and correlating with patient concern and with findings on mammogram there is skin thickening present. IMPRESSION: Right * No evidence of malignancy. Left (Arch Distortion): Upper at 12:00, Middle depth * Suspicious findings with likelihood of malignancy. Left (Arch Distortion): Upper Inner at 11:00, Middle depth * Probably Benign. RECOMMENDATIONS Left: Upper Inner at 10:00, 7 cm from nipple * Clinical follow up with school inspector pending the stereotactic guided biopsy results and breast MRI. Consider skin punch biopsy given asymmetric skin thickening on mammogram and ultrasound. Left: Upper at 12:00, Middle depth * Stereotactic-guided biopsy for further evaluation (Consider targeting on the CC view). Left: Upper Inner at 11:00, Middle depth * Further evaluation with diagnostic breast MRI using dynamic contrast- enhanced technique. COMMENTS: Findings and recommendations were conveyed to the patient during today's evaluation by Dr. Prieto. OVERALL ASSESSMENT CATEGORY BI-RADS-4: Suspicious. ELECTRONICALLY SIGNED: Prema Prieto M.D. on 06/11/2025 at 11:50:24 AM PT Interpreting Station ID: [id number]
== END ==
LOC: MAMMO 08:28
PROVIDERS: PCP Internal Medicine; Referring Provider Internal Medicine; Visit Provider Internal Medicine
DX: R92.8 Other abnormal and inconclusive findings on diagnostic imaging of breast (principal); N64.89 Other specified disorders of breast; N63.0 Unspecified lump in unspecified breast; R92.333 Mammographic heterogeneous density, bilateral breasts; Z12.11 Encounter for screening for malignant neoplasm of colon
CPT/HCPCS: 76642; 77066; G0279